=== PATIENT | male | born 1965 | race Caucasian/White ===

== ENCOUNTER 2020-08-23 17:17 | Emergency (ER) | payer BC, SELFPAY ==
[2020-08-23] VITALS (10 sets, daily range): BP systolic 133–157; BP diastolic 78–91; PULSE 72–88; RESP 15–21; TEMP 36.9; O2SAT 92–98
--- NOTE | ~2020-08-23 | XR_ITS ---
EXAMINATION: XR chest 1V portable DATE: 08/23/2020 19:17 INDICATION: Shortness of breath. Tingling in the left arm and forefoot. TECHNIQUE: frontal view of the chest was obtained. COMPARISON: None FINDINGS: The lungs are clear with no focal airspace opacities, pulmonary edema, pleural effusion or pneumothor ax. The cardiomediastinal silhouette is normal. Mild thoracic dextrocurvature with mild to moderate s pondylosis. IMPRESSION: 1. No acute cardiopulmonary disease. Reviewed, dictated and finalized at location H. T SPECIALIST PRODUCT DEMONSTRATOR
--- NOTE | 2020-08-23 17:38 | ECG_ITS ---
Measurements Intervals [place] Rate: 76 P: 65 HI: 121 QRS: 87 QRSD: 107 T: 63 QT: 377 QTc: 424 Interpretive Statements SINUS RHYTHM NORMAL ECG Electronically Signed On 08-23-2020 20:33:57 SR. PAYROLL MANAGER by Maicol Bartlett D.O.
[2020-08-23 17:45] LABS: Basophils Absolute Auto 0.1 K/mm3 (0.0-0.1); Basophils Percent Auto 0.6 % (0.2-1.2); Hematocrit 42.2 % (42.0-52.0); Hemoglobin 14.6 g/dL (14.0-18.0); Immature Granulocyte Absolute 0.05 K/mm3 (0.00-0.031); Immature Granulocyte Percent A 0.4 % (0-0.5); Lymphocytes Percent Auto 17.4 % (18.3-44.2); Mean Corpuscular HGB Conc 34.6 g/dl (32-36); Mean Corpuscular Hemoglobin 31.1 pg (26-34); Mean Corpuscular Volume 89.8 fl (80-100); Mean Platelet Volume 8.9 fl (7.4-10.4); Monocytes Absolute Auto 1.1 K/mm3 (0.1-0.6); Monocytes Percent Auto 8.2 % (2.6-8.5); Neutrophils Absolute Auto 10.1 K/mm3 (1.3-6.7); Neutrophils Percent Auto 73.4 % (45.5-73.1); Platelet Count Result 360 k/mm3 (150-375); Red Cell Distribution Width 11.9 % (11.5-14.5); White Blood Count 13.8 K/mm3 (4.5-10.0)
[2020-08-23 17:56] LABS: Alanine Aminotransferase 25 U/L (4-50); Albumin Level 4.4 g/dL (3.5-5.1); Alkaline Phosphatase 73 U/L (38-126); Anion Gap 7 mmol/L (8-16); Aspartate Amino Transferase 38 U/L (17-59); Bilirubin,Total 0.4 mg/dL (0.2-1.3); Blood Urea Nitrogen 15 mg/dL (9-20); Carbon Dioxide 32 mmol/L (22-30); Chloride 96 mmol/L (98-107); Estimated CRCL calculation 79 ml/min; Estimated Glomerular Filt Rate > 60; Glucose 107 mg/dL (75-110); Potassium 3.9 mmol/L (3.4-5.0); Sodium 135 mmol/L (137-145)
--- NOTE | 2020-08-23 19:29 | PC.NURSE ---
Assumed care of pt. at this time. Report from JHONATHAN Gomes
[2020-08-23] MEDS: ALBUTEROL SULFATE (*SP) AEROSOL 1 PUFF 6 PUFF INHALATION (19:59)
[2020-08-23] MEDS: AZITHROMYCIN 250 MG TABLET 500 MG PO (20:05)
[2020-08-23] MEDS: predniSONE 20 MG TABLET 60 MG PO (20:05)
--- NOTE | 2020-08-23 21:18 | ED.SOB ---
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 No Covid contacts that he knows of He does not have lung disease that he is aware of, however he smokes 1-1/2 to 2 packs a day and has for a long time He also complains of tingling paresthesias in the medial fingers of his left hand with there is no numbness or weakness It sounds like this might be worse with repeated activity but does not completely clear Onset (ago): day(s) Exacerbating factors: exertion Review of Systems Constitutional: Constitutional: Denies chills, Denies fatigue and Denies fever(s) ENT: Denies sore throat Comments: No taste change Cardiovascular: Cardiovascular: Denies chest pain Respiratory: Respiratory: Reports dyspnea and Reports wheezing Gastrointestinal: Gastrointestinal: Denies diarrhea and Denies vomiting Musculoskeletal: Musculoskeletal: Denies myalgias Exam Const: General: no acute distress, well developed and awake Nutritional Appearance: well nourished Orientation/consciousness: patient oriented x3 (alert) Limitations: no limitations HENMT: Head: normocephalic and atraumatic Ears: external ears normal General nose exam: No nasal discharge present and no epistaxis Face and sinus: face symmetric Eyes: Conjunctivae: conjunctivae normal Sclera: sclerae normal EOM: EOMs intact bilaterally Neck: Neck: normal visual inspection, supple and no JVD Chest: Chest palpation & inspection: deferred Resp: Effort & Inspection: normal respiratory effort Auscultation: clear to auscultation bilaterally, no rales, no rhonchi, wheezes (Mainly on the right) and other (BS =) Cardio: Rate: regular rate Rhythm: regular rhythm Heart sounds: no gallops and no murmurs GI: Inspection: normal to inspection GI Palp: Yes Soft to palpation and No Tenderness to palpation present (GI) : General: Yes no CVA tenderness Back/Spine/Pelvis: Back: no CVA tenderness Thoracic/Lumbar Spine: thoracic and lumbar spine normal to inspection Skin: General skin exam: normal color and no rashes or lesions noted Neuro: General: patient oriented x3 (alert), moves all extremities and no focal motor deficits Cranial nerves: Yes facial symmetry Speech: normal speech Extrem: General: normal to inspection, full ROM and no pedal edema Psych: Affect: normal affect Course Course Emergency Course: Improved after albuterol puffs with spacer Tolerated exertion at the bedside fine Vital Signs Vital signs: Vital Signs Temperature 36.9 C 08/23/20 17:23 Pulse Rate 85 08/23/20 17:23 Respiratory Rate 16 08/23/20 17:23 Blood Pressure 145/83 H 08/23/20 17:23 Pulse Oximetry 95 08/23/20 17:23 Temperature 36.9 C 08/23/20 17:23 Pulse Rate 80 08/23/20 20:08 Respiratory Rate 21 H 08/23/20 20:08 Blood Pressure 147/80 H 08/23/20 20:08 Pulse Oximetry 93 08/23/20 20:08 MDM - SOB/Dyspnea Lab Data Result diagrams: 08/23/20 17:32 08/23/20 17:32 Labs: Lab Results 08/23/20 08/23/20 Range/Units 17:32 17:32 WBC 13.8 H (4.5-10.0) K/mm3 RBC 4.70 (4.6-6.20) M/mm3 Hgb 14.6 (14.0-18.0) g/dL Hct 42.2 (42.0-52.0) % MCV 89.8 (80-100) fl MCH 31.1 (26-34) pg MCHC 34.6 (32-36) g/dl RDW 11.9 (11.5-14.5) % Plt Count 360 (150-375) k/mm3 MPV 8.9 (7.4-10.4) fl Immature Gran % (Auto) 0.4 (0-0.5) % Neut % (Auto) 73.4 H (45.5-73.1) % Lymph % (Auto) 17.4 L (18.3-44.2) % [place] % (Auto) 8.2 (2.6-8.5) % Eos % (Auto) 0.0 (0-4.4) % Baso % (Auto) 0.6 (0.2-1.2) % Lymph # (Auto
[2020-08-25 00:04] LABS: SARS-CoV-2 RNA PCR Negative
== END 2020-08-23 22:15 | disposition home or self-care (01) ==
PROVIDERS: Emergency Medicine; Emergency Provider Emergency Medicine
DX: J20.9 Acute bronchitis, unspecified (principal); Z20.828 Contact with and (suspected) exposure to other viral communicable diseases; F17.210 Nicotine dependence, cigarettes, uncomplicated
CPT/HCPCS: 36415; 71045; 80053; 85025; 87635; 93005; 99283; A9270; C9803; J7512; U0003

== ENCOUNTER → 2021-01-01 02:32 | Outpatient (CLI) | payer BC, SELFPAY ==
[2021-01-01 20:22] LABS: SARS-CoV-2 RNA PCR Negative
== END ==
PROVIDERS: PCP Family Medicine; Visit Provider Internal Medicine Gastroenterology
DX: Z01.812 Encounter for preprocedural laboratory examination (principal); Z20.822 Contact with and (suspected) exposure to COVID-19
CPT/HCPCS: C9803; U0003; U0005

== ENCOUNTER 2021-01-04 01:42 | Day surgery (SDC) | payer BC, SELFPAY ==
[2020-12-21 12:37] VITALS: BMI 28.5
[2021-01-04 07:14] VITALS: BP 130/79; PULSE 83; RESP 18; TEMP 36.2; O2SAT 94
[2021-01-04] MEDS: LACTATED RINGERS 1,000 ML 150 ML IV CONT (07:26)
--- NOTE | 2021-01-04 07:52 | PM.HPGS ---
History of Present Illness History of Present Illness Consent: Risks, benefits, and alternatives have been discussed and questions answered. Patient agrees to proceed with procedure. Chief complaint: neoplasm screening Narrative: Efrain Vanessa is a 55 year old male here for colon cancer screening. Review of Systems Review of Systems: All systems reviewed & are unremarkable except as noted in HPI and below PMFSH Past Medical History Medical History Anxiety COPD (chronic obstructive pulmonary disease) Environmental allergies Family History Family History Mother Breast cancer Social History Social History Smoking packs per day: 0.5 Smoking cigarettes per day: 10.0 Years smoked: 40 Smoking pack-years: 20.00 Smoking status: Current every day smoker Tobacco type: cigarettes Second hand tobacco smoke exposure: No Alcohol intake: former Substance use: never Substance use type: marijuana Living arrangements: with family Gender identity (if verbalized by the patient): Male Spiritual care concerns: No Meds Home Medications and Allergies Home Medications Medication Instructions Recorded Confirmed Type albuterol sulfate 90 mcg/actuation 2 puff INHALATION QID PRN #18 g 09/15/20 01/04/21 Rx aerosol inhaler hydroxyzine HCl 25 mg tablet See Rx Instructions .ROUTE 10/12/20 01/04/21 Rx .COMPLEX #60 tablet budesonide-formoterol HFA 160 2 puff INHALATION Q12H #10.2 g 12/13/20 01/04/21 Rx mcg-4.5 mcg/actuation aerosol inhaler sod picosulf 10 mg-magnes 3.5 160 ml PO BID #160 ml 12/16/20 01/04/21 Rx gram-citric 12 gram/160 mL oral solution Allergies Allergy/AdvReac Type Severity Reaction Status Date / Time No Known Allergies Allergy Verified 01/04/21 07:12 Vital Signs Vital Signs - 24 hr 01/04/21 07:14 Temperature 36.2 C L Pulse Rate 83 Respiratory Rate 18 Blood Pressure 130/79 Pulse Oximetry 94 Exam Resp: Auscultation: clear to auscultation bilaterally Cardio: Rate: regular rate Rhythm: regular rhythm GI: GI Palp: Yes Soft to palpation and No Tenderness to palpation present (GI) Assessment and Plan Assessment and plan (1) Colon cancer screening: Code(s): Z12.11 - Encounter for screening for malignant neoplasm of colon Status: Acute Assessment and Plan: Colonoscopy with possible biopsy or polypectomy or cautery or injection of substances.
--- NOTE | 2021-01-04 07:59 | WPDANESEPPF ---
Anes - Initial Pre Proc Eval Procedure: Operation Date: 01/04/21 08:30 Proposed Procedures p Screening Colonoscopy - Tan Saab MD Date/Time: 01/04/21 07:59 Surgeon: Tan Saab MD Pre Op Diagnosis: neoplasm screening Patient Data Age: 55 Gender: M Height: 5 ft 8 in Weight: 81.7 kg Last Vital Signs Temp 36.2 C L 01/04/21 07:14 Pulse 83 01/04/21 07:14 Resp 18 01/04/21 07:14 BP 130/79 01/04/21 07:14 Pulse Ox 94 01/04/21 07:14 Allergies Allergy/AdvReac Type Severity Reaction Status Date / Time No Known Allergies Allergy Verified 01/04/21 07:12 Home Medications Medication Instructions Recorded Confirmed Type albuterol sulfate 90 mcg/actuation 2 puff INHALATION QID PRN #18 g 09/15/20 01/04/21 Rx aerosol inhaler hydroxyzine HCl 25 mg tablet See Rx Instructions .ROUTE 10/12/20 01/04/21 Rx .COMPLEX #60 tablet budesonide-formoterol HFA 160 2 puff INHALATION Q12H #10.2 g 12/13/20 01/04/21 Rx mcg-4.5 mcg/actuation aerosol inhaler sod picosulf 10 mg-magnes 3.5 160 ml PO BID #160 ml 12/16/20 01/04/21 Rx gram-citric 12 gram/160 mL oral solution Patient hx anesthesia problems: none Family hx anesthesia problems: none PMFSH Past Medical History Medical History Anxiety COPD (chronic obstructive pulmonary disease) Environmental allergies Family History Family History Mother Breast cancer Social History Social History Smoking packs per day: 0.5 Smoking cigarettes per day: 10.0 Years smoked: 40 Smoking pack-years: 20.00 Smoking status: Current every day smoker Tobacco type: cigarettes Second hand tobacco smoke exposure: No Alcohol intake: former Substance use: never Substance use type: marijuana Living arrangements: with family Gender identity (if verbalized by the patient): Male Spiritual care concerns: No Anes - Eval Final PreProcedure Day of Procedure 01/04/21 07:59 Patient weight: overweight Heart: regular rate and rhythm Lungs: decreased breath sounds Airway: Mallampati scale class II Neurological: alert and oriented Last oral intake: >/= 8 hours ASA classification: III Emergent: no Anesthetic plan: proceed Anesthesia type and monitoring: general GIVS and standard monitoring Informed Consent: The patient's anesthetic plan and its attendant risks and benefits were discussed with the patient/family/POA. Questions were solicited and answers provided to the satisfaction of the patient/family/POA.
[2021-01-04 08:38] VITALS: BP 119/73; PULSE 74; RESP 18; O2SAT 97
[2021-01-04 08:48] VITALS: BP 124/68; PULSE 72; RESP 20; O2SAT 97
[2021-01-04 08:58] VITALS: BP 112/68; PULSE 70; RESP 20; O2SAT 97
== END 2021-01-04 09:15 | disposition home or self-care (01) ==
PROVIDERS: PCP Family Medicine; Visit Provider Internal Medicine Gastroenterology
PROC: 0DJD8ZZ Inspection of Lower Intestinal Tract, Via Natural or Artificial Opening Endoscopic (ICD-10-PCS; CPT 45378; principal; 2021-01-04 08:30)
DX: Z12.11 Encounter for screening for malignant neoplasm of colon (principal); K63.5 Polyp of colon; K57.30 Diverticulosis of large intestine without perforation or abscess without bleeding; J44.9 Chronic obstructive pulmonary disease, unspecified; F41.9 Anxiety disorder, unspecified; Z79.51 Long term (current) use of inhaled steroids; F17.210 Nicotine dependence, cigarettes, uncomplicated
CPT/HCPCS: 45380; 88305; J2704; J7120

== ENCOUNTER 2021-10-05 14:50 | Outpatient (CLI) | payer BC, SELFPAY ==
--- NOTE | ~2021-10-05 | XR_ITS ---
EXAMINATION: XR chest 2V DATE: 10/05/2021 15:01 INDICATION: Cough. Shortness of breath. TECHNIQUE: Frontal and lateral views of the chest were obtained. COMPARISON: Chest single view 08/23/2020 FINDINGS: The chest demonstrates clear lungs without pneumonia, pleural effusion, or pneumothorax. Th e heart size is normal. IMPRESSION: 1. No acute cardiopulmonary disease. Reviewed, dictated and finalized at location D. SPRAYER
== END 2021-10-05 14:51 | disposition home or self-care (01) ==
LOC: ANHIMG 14:52
PROVIDERS: PCP Family Medicine; Visit Provider Nurse Practitioner
DX: R05.9 Cough, unspecified (principal)
CPT/HCPCS: 71046

== ENCOUNTER 2021-12-02 13:51 | Outpatient (CLI) | payer BC, SELFPAY ==
--- NOTE | 2021-12-05 13:09 | WPDPFTINT ---
PFT Procedure Performed PFT Procedure Performed Spirometry with Pre/Post Bronchodilator Plethysmography (Lung Vol) Diffusing Cap (DLCO) Flow Vol Loop PFT Interpretation Lung volumes were measured with the body plethysmography method. Lung volumes are unremarkable. Spirometry showed diminished expiratory flow rates and a diminished FEV1 to FVC ratio 57%, indicative of obstructive airway disease. Following administration of a bronchodilator there was no significant increase in expiratory flow rates. Lung diffusion capacity is mildly reduced at 76% predicted. The flow volume loop is consistent with obstructive airway disease. Impression: Moderate obstructive airway disease with no response to bronchodilators on this testing. Mild reduction in lung diffusion capacity.
== END 2021-12-02 13:52 | disposition home or self-care (01) ==
LOC: ANHPFT 13:51
PROVIDERS: PCP Family Medicine; Visit Provider Family Medicine
DX: J44.9 Chronic obstructive pulmonary disease, unspecified (principal); R94.2 Abnormal results of pulmonary function studies
CPT/HCPCS: 94060; 94726; 94729

== ENCOUNTER 2021-12-24 13:29 | Inpatient (IN) | payer BC, SELFPAY ==
[2021-12-24] VITALS (20 sets, daily range): BP systolic 129–157; BP diastolic 75–98; PULSE 83–101; RESP 12–24; TEMP 36.2–36.8; O2SAT 88–97; BMI 27.6
--- NOTE | ~2021-12-24 | XR_ITS ---
XR chest 2V DATE: 12/24/2021 15:34 INDICATION: Shortness of breath. History of COPD. TECHNIQUE: AP and lateral views COMPARISON: 10/05/2021 PA and lateral chest FINDINGS: Normal heart size. No hilar or mediastinal enlargement. Moderate bilateral hyperinflation. No pulmonary infiltrate or consolidation, pleural effusion or pulmonary vascular congestion or pneumo thorax. Included skeletal structures are unremarkable. IMPRESSION: Moderate bilateral hyperinflation; no active cardiopulmonary disease Reviewed, dictated and finalized at location A. IMPRESSION: Moderate bilateral hyperinflation; no active cardiopulmonary diseas e
--- NOTE | 2021-12-24 13:38 | ECG_ITS ---
Measurements Intervals [place] Rate: 91 P: 68 UT: 136 QRS: 103 QRSD: 143 T: 39 QT: 387 QTc: 478 Interpretive Statements SINUS RHYTHM RIGHT AXIS DEVIATION [QRS AXIS > 100] INTRAVENTRICULAR CONDUCTION DELAY [130+ ms QRS DURATION] ABNORMAL ECG COMPARED TO ECG 08/23/2020 17:37:37 INTRAVENTRICULAR CONDUCTION DELAY NOW PRESENT Electronically Signed On 12-24-2021 15:24:44 CDT by Del Jordan M.D.
[2021-12-24 14:00] LABS: Alveolar/Arterial O2 Gradient 39.1 mmHg; Carboxyhemoglobin 1.1 % THb (0-2.0); Fractional Inspired Oxygen 21 %; HCO3 ABG 28.2 mEq/l (22.0-26.0); Methemoglobin ABG 0.2 %THb (0-1.5); Oxygen Content ABG 19.9 %vol (16.0-22.0); Oxygen Saturation ABG 90.2 % (95.0-100.0); Oxyhemoglobin 88.1 % THb (90.0-100.0); PCO2 ABG 44.5 mmHg (35.0-45.0); PO2 ABG 57.3 mmHg (80.0-100.0); PO2 FiO2 Ratio Arterial Blood 2.73 %; Reduced Hemoglobin 10.6 %THb (0-5.0); Total Hemoglobin 16.1 g/dL (12.0-18.0); pH ABG 7.419 (7.350-7.450)
[2021-12-24 14:01] LABS: Device ROOM AIR; Modified Allen's Test Pass; Site Drawn LEFT RADIAL
[2021-12-24 14:16] LABS: Basophils Absolute Auto 0.1 K/mm3 (0.0-0.1); Eosinophils Absolute Auto 2.4 K/mm3 (0-0.3); Eosinophils Percent Auto 26.1 % (0-4.4); Hematocrit 46.4 % (42.0-52.0); Hemoglobin 15.5 g/dL (14.0-18.0); Immature Granulocyte Absolute 0.02 K/mm3 (0.00-0.031); Immature Granulocyte Percent A 0.2 % (0-0.5); Lymphocytes Absolute Auto 1.51 K/mm3 (0.9-3.2); Lymphocytes Percent Auto 16.8 % (18.3-44.2); Mean Corpuscular HGB Conc 33.4 g/dl (32-36); Mean Corpuscular Hemoglobin 30.9 pg (26-34); Mean Corpuscular Volume 92.4 fl (80-100); Mean Platelet Volume 8.7 fl (7.4-10.4); Monocytes Percent Auto 10.9 % (2.6-8.5); Platelet Count Result 351 k/mm3 (150-375); Red Blood Count 5.02 M/mm3 (4.6-6.20); Red Cell Distribution Width 12.4 % (11.5-14.5)
[2021-12-24] MEDS: ALBUTEROL SULFATE NEB 2.5 MG/0.5 ML INH 15 MG INHALATION (14:18)
[2021-12-24] MEDS: IPRATROPIUM BR 0.02% INH SOLN 0.5 MG/2.5 ML VIAL 1.5 MG INHALATION (14:19)
[2021-12-24 14:26] LABS: Alanine Aminotransferase 34 U/L (4-50); Albumin Level 4.6 g/dL (3.5-5.1); Alkaline Phosphatase 68 U/L (38-126); Anion Gap 3 mmol/L (8-16); Aspartate Amino Transferase 35 U/L (17-59); Bilirubin,Total 0.6 mg/dL (0.2-1.3); Blood Urea Nitrogen 15 mg/dL (9-20); Carbon Dioxide 31 mmol/L (22-30); Chloride 102 mmol/L (98-107); Estimated CRCL calculation 88 ml/min; Estimated Glomerular Filt Rate > 60; Glucose 110 mg/dL (65-110); Potassium 4.3 mmol/L (3.4-5.0); Sodium 136 mmol/L (137-145)
--- NOTE | 2021-12-24 14:27 | ED.SOB ---
HPI - SOB/Dyspnea General Chief Complaint: Shortness of Breath/Dyspnea Stated Complaint: SOB Time Seen by Provider: 12/24/21 13:48 History of Present Illness HPI Narrative: Patient is a 56-year-old male who presents ER with shortness of breath. Ongoing over the last week. Called into his brass buffer office who prescribed him a Z-Vineet. She has had some cough but no change in his mucus. No fevers or chills or sweats. Denies chest pain or chest pressure. He is not oxygen dependent at home. He does note wheezing. Found to be hypoxic on room air here. Patient has been using his home budesonide and albuterol to help with his dyspnea but felt he needed additional therapy due to his persistent dyspnea. Related Data Home Medications Medication Instructions Recorded Confirmed albuterol sulfate 2 puff INHALATION PRN PRN 12/24/21 12/24/21 [id number] 2 inh INHALATION BID 12/24/21 12/24/21 [Breztri Aerosphere] hydroxyzine HCl 25 mg PO BID 12/24/21 12/24/21 triamcinolone acetonide 1 applic TOPICAL DAILY PRN 12/24/21 12/24/21 Allergies Allergy/AdvReac Type Severity Reaction Status Date / Time No Known Allergies Allergy Verified 12/24/21 20:04 Review of Systems Review of Systems: All systems reviewed & are unremarkable except as noted in HPI and below Constitutional: Constitutional: Denies chills, Denies fever(s) and Denies weakness ENT: Denies nasal congestion and Denies sore throat Cardiovascular: Cardiovascular: Denies chest pain, Denies rapid heart rate and Denies radiating jaw, neck or arm pain Respiratory: Respiratory: Reports cough, Reports dyspnea and Reports wheezing Gastrointestinal: Gastrointestinal: Denies abdominal pain, Denies nausea and Denies vomiting [facility] Past Medical History Medical History Anxiety COPD (chronic obstructive pulmonary disease) Environmental allergies Surgical History Surgical History H/O removal of cyst (~2020) 07/2021 - left supraclavicular area History of melanoma excision 08/2021 - left scapula Family History Family History Mother Breast cancer Social History Social History Smoking packs per day: 2 Smoking cigarettes per day: 40.0 Years smoked: 40 Smoking pack-years: 80.00 Smoking status: Former smoker Tobacco type: cigarettes Second hand tobacco smoke exposure: No Smoking end date: 07/08/21 Alcohol intake: former Substance use: former Substance use type: marijuana Last use: 07/08/2021 Gender identity (if verbalized by the patient): Male Sexual Orientation (if Verbalized by the Patient): Straight or Heterosexual Spiritual care concerns: No Exam Narrative: GENERAL: Uncomfortable-appearing, well-nourished, and in no acute distress. HEAD: Normocephalic, atraumatic. EYES: PERRL and EOMI. ENT: Mucous membranes moist. CHEST: Expiratory wheezing throughout and diminished inferior/posterior lung sounds bilaterally. No rales/rhonchi. No respiratory distress. HEART: Regular rate and rhythm. Normal peripheral pulses. EXTREMITIES: Normal range of motion. No edema. SKIN: Warm, dry, no rash. NEURO: Alert and oriented x3. PSYCH: Normal mood and affect. Course Course Emergency Course: Hypoxic to 86%. Admit to hospital service for scheduled nebs and steroids. Vital Signs Vital signs: Vital Signs Temperature 97.1 F L 12/24/21 13:31 Pulse Rate 94 12/24/21 13:31 Respiratory Rate 24 H 12/24/21 13:31 Blood Pressure 155/91 H 12/24/21 13:31 Pulse Oximetry 89 L 12/24/21 13:31 Temperature 98.2 F 12/24/21 19:45 Pulse Rate 90 12/24/21 19:45 Respiratory Rate 18 12/24/21 19:45 Blood Pressure 134/98 H 12/24/21 19:45 Pulse Oximetry 95 12/24/21 20:14 MDM - SOB/Dyspn
[2021-12-24] MEDS: methylPREDNISolone SOD SUCC 125 MG VIAL IV PUSH (15:04)
--- NOTE | 2021-12-24 19:30 | ADMGEN ---
This patient, Efrain Vanessa, was admitted to [facility] Surg Room 330-01. Patient/family oriented to hospital policies and general routines including ID bracelet, bed and alarms, visiting hours, pain management, procedures, bathroom and other care routines, personal items, smoking policy, room service/diet, and visiting hours. Information on how to activate the Rapid Response Team has been discussed. Patient/Family are encouraged to report perceived risks to care and to ask questions if they do not understand what they are told or what they should do.
--- NOTE | 2021-12-24 19:56 | PM.IMHP ---
H&P: HPI History of Present Illness Date/Time: 12/24/21 19:56 Chief Complaint: Shortness of breath. Narrative: This is a 56-year-old male with past medical history significant for COPD/emphysema, former tobacco tobacco use. Patient presents to the emergency room due to progressively worsening shortness of breath, dry cough, patient new using his albuterol frequently also visited the emergency room 2 days prior to today he was discharged home with Z-Vineet however patient did not get well he is a pulse ox with at home device was showing a pulse ox of 86-89% on room air. Patient denies any copious amount of sputum production or sputum quality changes. Has had night sweats but no fevers no chills no rigors his appetite has been poor, feels fatigued. Patient also is states that he just recently was seen by a head setter on had some change to his medications feels that he has been in a transitioning and medication is not working. Preliminary workup was significant for chest x-ray with hyperinflation no infiltrates were present. Decision has been made to admit the patient for further evaluation management and treatment. Review of Systems Review of Systems: Shortness of breath, dry cough, fatigue, poor appetite. Constitutional: Constitutional: Denies chills, Reports fatigue, Denies fever(s), Denies malaise, Reports night sweats, Reports poor appetite and Denies weakness Eyes: Eyes: Denies change in vision ENT: Denies dysphagia, Denies vertigo, Denies nasal congestion, Denies nasal discharge, Denies nasal obstruction and Denies odynophagia Cardiovascular: Cardiovascular: Denies pedal edema, Denies claudication, Denies leg edema, Denies lightheadedness, Denies radiating jaw, neck or arm pain, Denies palpitations, Denies dyspnea on exertion, Denies orthopnea and Denies paroxysmal nocturnal dyspnea Respiratory: Respiratory: Denies change in phlegm color, Reports cough, Denies excessive phlegm production, Reports dyspnea and Reports wheezing Gastrointestinal: Gastrointestinal: Denies abdominal pain, Denies dyspepsia, Denies heartburn, Denies nausea and Denies vomiting Genitourinary: Genitourinary: Denies dysuria Musculoskeletal: Musculoskeletal: Denies back pain, Denies myalgias, Denies arthralgias and Denies joint swelling Integumentary/Breasts: Skin/Breast: Denies rash Neurologic: Denies vertigo, Denies dizziness, Denies focal weakness and Denies Sensory deficit (Neuro) Psychiatric: Psychiatric: Reports no additional psychiatric complaints and Reports as per HPI Endocrine: Endocrine: Denies cold intolerance, Denies fatigue, Denies flushing, Denies heat intolerance, Denies polyphagia, Denies polydipsia, Denies polyuria and Denies palpitations Hematologic/Lymphatic: Hematologic/Lymphatic: Reports no additional hematologic/lymphatic complaints and Reports as per HPI Allergic/Immunologic: Allergic/Immunologic: Reports no additional allergic/immunologic complaints and Reports as per HPI PMFSH Past Medical History Medical History Anxiety COPD (chronic obstructive pulmonary disease) Environmental allergies Surgical History Surgical History H/O removal of cyst (~2020) 07/2021 - left supraclavicular area History of melanoma excision 08/2021 - left scapula Family History Family History Mother Breast cancer Social History Social History Smoking packs per day: 2 Smoking cigarettes per day: 40.0 Years smoked: 40 Smoking pack-years: 80.00 Smoking status: Former smoker Tobacco type: cigarettes Second hand tobacco smoke exposure: No Smoking end date: 07/08/21 Alcohol intake: former Substance use: former Substance use type: marijuana Last use: 07/08/2021 Gender identity (if verbalized by the p
[2021-12-24] MEDS: methylPREDNISolone SOD SUCC 125 MG VIAL 60 MG IV PUSH (23:12)
[2021-12-25] VITALS (18 sets, daily range): BP systolic 139–144; BP diastolic 67–78; PULSE 67–97; RESP 16–20; TEMP 35.9–36.3; O2SAT 91–96
[2021-12-25] MEDS: ALBUTEROL SULFATE NEB 2.5 MG/0.5 ML INH INHALATION ×6 (00:25→20:12)
[2021-12-25] MEDS: IPRATROPIUM BR 0.02% INH SOLN 0.5 MG/2.5 ML VIAL INHALATION ×6 (00:25→20:12)
[2021-12-25] MEDS: methylPREDNISolone SOD SUCC 125 MG VIAL 60 MG IV PUSH ×2 (11:42→20:19)
--- NOTE | 2021-12-25 12:27 | PM.IMPN ---
Progress Note: A&P Assessment and Plan (1) Acute respiratory failure with hypoxia: Code(s): J96.01 - Acute respiratory failure with hypoxia Status: Resolved Assessment and Plan: Secondary to COPD exacerbation Patient presented with acute SOB and found to be hypoxic down to 86% on admission ABG demonstrated hypoxemia Currently requiring 2L supplemental O2 per nasal cannula. Maintaining adequate O2 sats. Wean O2 as tolerated to goal 90% or above (2) COPD exacerbation: Code(s): J44.1 - Chronic obstructive pulmonary disease with (acute) exacerbation Status: Acute Assessment and Plan: Patient with hx of COPD presents with increased SOB, hypoxia, and wheezing Continue solumedrol. 60 mg q8h Albuterol and ipratropium nebs q6h scheduled Prn albuterol inhaler No indication for antibiotics. No change in sputum quality. Patient recently changed to Breztri inhaler over the past 2 weeks. Reports has not been tolerating well. He is established with Dr. Billingsley. Will plan to contact him tomorrow to consider alternative maintenace inhalers Subjective Date/time seen: 12/25/21 12:27 Interval history: Date of service: 12/25/2021 Efrain Vanessa is a 56 year old male with a history of anxiety, seasonal allergies, and COPD who is seen in follow up for COPD exacerbation. The patient tells me for the past two weeks he has been going downhill and having persistent symptoms of shortness of breath. He stated it got to the point where he could barely walk across the room without feeling very short of breath. He was waking up at night unable to catch his breath. He had been checking his pulse ox at home and found it to be at 89%. He also had been coughing more frequently. Endorsed dry cough without sputum. He believes some of his symptoms may be due to the change in weather as he does suffer from seasonal allergies. He also states he has several animals at home and can occasionally be bothered by dander. Most recently he has been requiring nebs every 4 hours and waking up several times at night requiring his rescue inhaler. He had been taking azithromycin at home for 2 days without any change in symptoms. On my encounter today he is feeling much better. He states his wheezing is 100% improved. He is able to walk around his hospital room without feeling SOB. Denies conversational dyspnea. Still with intermittent nonproductive cough. Denies chest pain, palpitations, nausea, vomiting, fever, chills. Review of Systems Review of Systems: All systems reviewed & are unremarkable except as noted in HPI and below Exam Narrative: General: thin, well-appearing 56-year-old male, sitting up in bed, comfortable, NARD Neuro: awake, alert and oriented x4, speech clear, no focal neuro deficits noted HEENMT: normocephalic, atraumatic, EOMI, sclerae anicteric, moist oral mucosa Respiratory: Diffusely diminished breath sounds, very faint expiratory wheezes, nonlabored breathing Cardio: regular rate, regular rhythm with S1-S2 Abdomen: nondistended, normoactive bowel sounds, soft, nontender to palpation Extremities: no edema, erythema, or tenderness to palpation, DP pulses 2+ bilaterally Skin: no rashes or lesions, warm and dry Psych: appropriate mood and affect, judgment and insight intact Objective Data Vital Signs Vital Signs: Vital Signs - 24 hr 12/24/21 13:31 12/24/21 15:00 12/24/21 15:16 Temperature 97.1 F L Pulse Rate 94 90 93 Respiratory Rate 24 H 19 Blood Pressure 155/91 H 135/96 H 151/91 H Pulse Oximetry 89 L 97 96 12/24/21 16:01 12/24/21 16:30 12/24/21 17:00 Temperature Pulse Rate 91 Respiratory Rate 18 Blood Pressure 143/80 H 145/82 H 129/90 Pulse Oximetry 88 L 91 12/24/21 17:01 12/24/21 17:35 12/24/21 17:45 Temperature Pulse Rate 94 88 92 Respiratory Rate 23 H 16 Blood Pressure Pulse Oximetry 91 92 91 12/24/21 18:00 12/24/21 18:01 12/24/21 18:15 Temperature
[2021-12-25] MEDS: hydrOXYzine HCL 25 MG TABLET PO (21:32)
[2021-12-26] VITALS (16 sets, daily range): BP systolic 125–156; BP diastolic 69–83; PULSE 72–90; RESP 16–20; TEMP 35.9–36.7; O2SAT 92–95
[2021-12-26] MEDS: ALBUTEROL SULFATE NEB 2.5 MG/0.5 ML INH INHALATION ×5 (00:10→20:18)
[2021-12-26] MEDS: IPRATROPIUM BR 0.02% INH SOLN 0.5 MG/2.5 ML VIAL INHALATION ×5 (00:10→20:18)
[2021-12-26] MEDS: methylPREDNISolone SOD SUCC 125 MG VIAL 60 MG IV PUSH (05:33)
[2021-12-26 06:16] LABS: Anion Gap 4 mmol/L (8-16); Blood Urea Nitrogen 28 mg/dL (9-20); Calcium 8.9 mg/dL (8.4-10.2); Carbon Dioxide 29 mmol/L (22-30); Chloride 103 mmol/L (98-107); Estimated CRCL calculation 76 ml/min; Estimated Glomerular Filt Rate > 60; Glucose 155 mg/dL (65-110); Potassium 4.5 mmol/L (3.4-5.0); Sodium 136 mmol/L (137-145)
[2021-12-26] MEDS: LORATADINE 10 MG TABLET PO (08:32)
[2021-12-26] MEDS: hydrOXYzine HCL 25 MG TABLET PO ×2 (08:32→17:15)
--- NOTE | 2021-12-26 11:34 | PCCCNOTE ---
On 12/26/21, the student, [Rebecca Galeana ], provided care and completed [facility] documentation on this patient. I have reviewed the student's documentation and agree with the findings.
--- NOTE | 2021-12-26 12:59 | PM.IMPN ---
Progress Note: A&P Assessment and Plan (1) Acute respiratory failure with hypoxia: Code(s): J96.01 - Acute respiratory failure with hypoxia Status: Resolved Assessment and Plan: Secondary to COPD exacerbation Patient presented with acute SOB and found to be hypoxic down to 86% on admission ABG demonstrated hypoxemia Currently requiring 1L supplemental O2 per nasal cannula. Maintaining adequate O2 sats. Wean O2 as tolerated to goal 90% or above (2) COPD exacerbation: Code(s): J44.1 - Chronic obstructive pulmonary disease with (acute) exacerbation Status: Acute Assessment and Plan: Patient with hx of COPD presents with increased SOB, hypoxia, and wheezing Continue solumedrol, weaned to 40 mg BID Albuterol and ipratropium nebs q6h scheduled Prn albuterol inhaler No indication for antibiotics. No change in sputum quality. Patient recently changed to Breztri inhaler over the past 2 weeks. Reports has not been tolerating well. He is established with Dr. Billingsley. I have contacted his office to discuss considering alternative maintenance inhalers and am awaiting return call Subjective Date/time seen: 12/26/21 12:59 Interval history: Date of service: 12/26/2021 Efrain Vanessa is a 56 year old male with a history of anxiety, seasonal allergies, and COPD who quit smoking in July 2021 who is seen in follow up for COPD exacerbation. He is feeling overall improved, however he notes this morning he had a coughing fit lasting for several minutes and afterwards felt quite short of breath. He noticed that he was wheezing after this episode. He states he has not had a breathing treatment since very early this morning. He has not used his rescue inhaler since he has been here. He slept all through the night and did not have any nighttime symptoms. He notes that he is able to go longer in between his breathing treatments as he was previously taking these every 4 hours around the clock. He is still able to ambulate without dyspnea. His appetite is good. Denies abdominal pain, nausea, vomiting, fever, chills, dizziness, lightheadedness, weakness. Review of Systems Review of Systems: All systems reviewed & are unremarkable except as noted in HPI and below Exam Narrative: General: thin, well-appearing 56-year-old male, sitting up in bed, comfortable, NARD Neuro: awake, alert and oriented x4, speech clear, no focal neuro deficits noted HEENMT: normocephalic, atraumatic, EOMI, sclerae anicteric, moist oral mucosa Respiratory: Bilateral expiratory wheezes, nonlabored breathing, able to speak in complete sentences Cardio: regular rate, regular rhythm with S1-S2 Abdomen: nondistended, normoactive bowel sounds, soft, nontender to palpation Extremities: no edema, erythema, or tenderness to palpation, DP pulses 2+ bilaterally Skin: no rashes or lesions, warm and dry Psych: appropriate mood and affect, judgment and insight intact Objective Data Vital Signs Vital Signs: Vital Signs - 24 hr 12/25/21 14:00 12/25/21 15:40 12/25/21 15:47 Temperature 96.7 F L Pulse Rate 86 67 74 Respiratory Rate 20 18 18 Blood Pressure 143/67 H Pulse Oximetry 94 12/25/21 15:58 12/25/21 20:13 12/25/21 20:15 Temperature Pulse Rate 85 85 Respiratory Rate 18 Blood Pressure Pulse Oximetry 95 92 12/25/21 20:22 12/25/21 21:57 12/26/21 00:11 Temperature 97.4 F L Pulse Rate 81 91 90 Respiratory Rate 18 18 18 Blood Pressure 139/78 Pulse Oximetry 96 12/26/21 00:31 12/26/21 04:27 12/26/21 04:36 Temperature Pulse Rate 78 85 83 Respiratory Rate 18 18 18 Blood Pressure Pulse Oximetry 12/26/21 06:00 12/26/21 08:15 12/26/21 09:00 Temperature 97.5 F L Pulse Rate 81 81 Respiratory Rate 18 18 Blood Pressure 125/69 Pulse Oximetry 92 94 12/26/21 09:04 12/26/21 09:07 Temperature Pulse Rate 83 Respiratory Rate 18 Blood Pressure Pulse Oximetry 93
[2021-12-26] MEDS: methylPREDNISolone SOD SUCC 40 MG VIAL IV PUSH (17:15)
[2021-12-27] VITALS (23 sets, daily range): BP systolic 125–142; BP diastolic 69–73; PULSE 71–89; RESP 16–20; TEMP 36.2–36.6; O2SAT 91–96
[2021-12-27] MEDS: ALBUTEROL SULFATE NEB 2.5 MG/0.5 ML INH INHALATION ×6 (00:10→20:00)
[2021-12-27] MEDS: IPRATROPIUM BR 0.02% INH SOLN 0.5 MG/2.5 ML VIAL INHALATION ×6 (00:10→20:00)
--- NOTE | 2021-12-27 05:20 | PCRCNOTE ---
Pt refused 0400 treatment. RN called RT at 0515 and stated the pt needed a treatment due to shortness of breath and desaturation. RT administered 0400 treatment at 0520.
[2021-12-27] MEDS: methylPREDNISolone SOD SUCC 40 MG VIAL IV PUSH ×2 (05:53→16:59)
--- NOTE | 2021-12-27 06:23 | PC.NURSE ---
Pt called saying he was short of breath. Maintenance Mechanic checked pts O2 saturation and pt was sating at 73%. Maintenance Mechanic put patient on 4L of oxygen and pt ramona to 91% O2 saturation. Maintenance Mechanic called respiratory and asked for a treatment. Patient is currently on 3L sating at 93%. Call light is within reach.
[2021-12-27] MEDS: hydrOXYzine HCL 25 MG TABLET PO ×2 (07:56→16:59)
[2021-12-27] MEDS: LORATADINE 10 MG TABLET PO (07:56)
[2021-12-27 09:38] LABS: Hematocrit 42.8 % (42.0-52.0); Hemoglobin 14.3 g/dL (14.0-18.0); Mean Corpuscular HGB Conc 33.4 g/dl (32-36); Mean Corpuscular Hemoglobin 31.2 pg (26-34); Mean Corpuscular Volume 93.4 fl (80-100); Mean Platelet Volume 8.8 fl (7.4-10.4); Platelet Count Result 336 k/mm3 (150-375); Red Blood Count 4.58 M/mm3 (4.6-6.20); Red Cell Distribution Width 12.6 % (11.5-14.5); White Blood Count 11.7 K/mm3 (4.5-10.0)
[2021-12-27 09:49] LABS: Anion Gap 7 mmol/L (8-16); Blood Urea Nitrogen 26 mg/dL (9-20); Calcium 8.6 mg/dL (8.4-10.2); Carbon Dioxide 30 mmol/L (22-30); Chloride 99 mmol/L (98-107); Estimated CRCL calculation 76 ml/min; Estimated Glomerular Filt Rate > 60; Glucose 227 mg/dL (65-110); Potassium 4.1 mmol/L (3.4-5.0); Sodium 136 mmol/L (137-145)
--- NOTE | 2021-12-27 10:00 | PM.CNPUL ---
Assessment and Plan Assessment and plan (1) COPD exacerbation: Code(s): J44.1 - Chronic obstructive pulmonary disease with (acute) exacerbation Status: Acute Assessment and Plan: 56-year-old man with COPD has been treated for COPD exacerbation. His clinical condition has overall improved although he had 1 episode of bronchospasm earlier today. I would continue with current IV steroid regimen and short-acting bronchodilators as ordered. Added DVT prophylaxis. in view of multiple COPD exacerbations, I would add Daliresp 500 mg p.o. daily to his outpatient maintenance regimen. The patient wants to continue with Symbicort and Spiriva for maintenance bronchodilation. Will follow the patient along with you. (2) Acute respiratory failure with hypoxia: Code(s): J96.01 - Acute respiratory failure with hypoxia Status: Resolved History of Present Illness History of Present Illness Consult date: 12/27/21 Chief complaint: COPD Exacerbation, Hypoxia Narrative: This 56-year-old man presented with progressively increasing shortness of breath. The patient has had history of COPD with multiple exacerbations in the recent past. He was evaluated in the Pulmonary Clinic approximately 3 weeks ago. He was scheduled to have 6 minute walk test. Approximately 1 week prior to this admission, the patient started having shortness of breath and wheezing. He had no fever chills hemoptysis chest pain palpitations. He was using his nebulized short-acting bronchodilator every 4 hours without improvement. He was prescribed Zithromax on the phone for possible respiratory infection. The patient shortness of breath progressively increased and presented to the emergency room where he was diagnosed with COPD exacerbation. He has been treated with IV steroids and short-acting bronchodilators. His clinical condition was significantly improved until this a.m. when he started coughing and having wheezing again. He was placed back on supplemental oxygen and was given nebulized short-acting bronchodilators. Currently he is doing better with no shortness of breath and no cough. Recent pulmonary function testing had shown FEV1 of 2.4 L or 67% predicted and FEV1 to FVC ratio 57%. Lung diffusion capacity was mildly reduced. Low-dose CT done at [facility] in June of 2021 showed 3 lung nodules measuring less than 2 mm as well as diffuse peribronchial interstitial thickening suggesting bronchitis. The distal airways were partially opacified likely mucus plugging versus retained mucus secretions. Chest CT images were not available for review. The patient used to smoke 2 packs per day for approximately 40 years. He quit approximately 6 months ago. 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 up until recently the patient was on Symbicort and Spiriva inhalers and nebulized short-acting bronchodilators. He was switched to Breztri inhaler twice daily approximately 3 weeks ago. The patient stated that the new inhaler did not help him as much as Symbicort and Spiriva inhalers. Review of Systems Review of Systems: All systems reviewed & are unremarkable except as noted in HPI and below PMFSH Past Medical History Medical History Anxiety COPD (chronic obstructive pulmonary disease) Environmental allergies Surgical History Surgical History H/O removal of cyst (~2020) 07/2021 - left supraclavicular area History of melanoma excision 08/2021 - left scapula Family History Family History Mother Breast cancer Social History Social History Smoking packs per day: 2 Smoking cigarettes per day: 40.0 Years smo
[2021-12-27] MEDS: ENOXAPARIN 40 MG/0.4 ML SYRINGE SUB-Q (10:55)
--- NOTE | 2021-12-27 16:18 | PM.IMPN ---
Progress Note: A&P Assessment and Plan (1) Acute respiratory failure with hypoxia: Code(s): J96.01 - Acute respiratory failure with hypoxia Status: Resolved Assessment and Plan: Secondary to COPD exacerbation Patient presented with acute SOB and found to be hypoxic down to 86% on admission ABG demonstrated hypoxemia Has been weaned to room air. This morning required 4 L supplemental O2 but again was able to be quickly weaned to room air and O2 sats are stable at 95% Home O2 eval prior to discharge (2) COPD exacerbation: Code(s): J44.1 - Chronic obstructive pulmonary disease with (acute) exacerbation Status: Acute Assessment and Plan: Patient with hx of COPD presented with increased SOB, hypoxia, and wheezing Continue solumedrol 40 mg BID Albuterol and ipratropium nebs q6h scheduled Prn albuterol inhaler No indication for antibiotics. No change in sputum quality. Patient recently changed to Breztri inhaler over the past 2 weeks. Reports has not been tolerating well and wants to change back to Symbicort and Spiriva Consult to pulmonology today given episode of acute dyspnea and hypoxia this morning. Recommends addition of daily rest 500 mg daily. He is established with Dr. Billingsley Subjective Date/time seen: 12/27/21 16:18 Interval history: Date of service: 12/27/2021 Efrain Vanessa is a 56 year old male with a history of anxiety, seasonal allergies, and COPD who quit smoking in July 2021 who is seen in follow up for COPD exacerbation. He is feeling okay this afternoon. He notes this morning he had a coughing fit in which she had trouble catching his breath. He was found to be hypoxic at 73% and required 4 L of oxygen. His episode made him very nervous. At this time he is feeling improved and he is not having any wheezes. He is not requiring oxygen. He denies shortness of breath or NICOLAS. No more coughing spells. No sputum production. Denies abdominal pain, nausea, vomiting, fever, chills. Appetite is good. He does feel that his face is a bit reddened and he feels this may be from the steroids. His is present with him at the bedside today Review of Systems Review of Systems: All systems reviewed & are unremarkable except as noted in HPI and below Exam Narrative: General: thin, well-appearing 56-year-old male, sitting up in bed, comfortable, NARD Neuro: awake, alert and oriented x4, speech clear, no focal neuro deficits noted HEENMT: normocephalic, atraumatic, EOMI, sclerae anicteric, moist oral mucosa Respiratory: Faint bilateral expiratory wheezes, nonlabored breathing, able to speak in complete sentences Cardio: regular rate, regular rhythm with S1-S2 Abdomen: nondistended, normoactive bowel sounds, soft, nontender to palpation Extremities: no edema, erythema, or tenderness to palpation, DP pulses 2+ bilaterally Skin: no rashes or lesions, warm and dry Psych: appropriate mood and affect, judgment and insight intact Objective Data Vital Signs Vital Signs: Vital Signs - 24 hr 12/26/21 20:20 12/26/21 20:21 12/26/21 20:30 Temperature Pulse Rate 84 86 Respiratory Rate 16 16 Blood Pressure Pulse Oximetry 95 12/26/21 22:00 12/27/21 00:10 12/27/21 00:23 Temperature 98.0 F Pulse Rate 72 72 74 Respiratory Rate 16 16 16 Blood Pressure 141/72 H Pulse Oximetry 94 12/27/21 05:24 12/27/21 05:25 12/27/21 05:34 Temperature Pulse Rate 88 82 Respiratory Rate 20 18 Blood Pressure Pulse Oximetry 91 12/27/21 05:57 12/27/21 06:12 12/27/21 06:27 Temperature 97.2 F L Pulse Rate 71 Respiratory Rate 16 Blood Pressure 125/70 Pulse Oximetry 96 95 93 12/27/21 07:41 12/27/21 07:45 12/27/21 07:49 Temperature Pulse Rate 78 79 Respiratory Rate 18 18 Blood Pressure Pulse Oximetry 96 12/27/21 08:20 12/27/21 12:02 12/27/21 12:05 Temperature Pulse Rate 77 Respiratory Rate 18 Blood Pressure
[2021-12-28] VITALS (9 sets, daily range): BP systolic 135; BP diastolic 78; PULSE 70–84; RESP 18; TEMP 36.4; O2SAT 93–94
[2021-12-28] MEDS: ALBUTEROL SULFATE NEB 2.5 MG/0.5 ML INH INHALATION ×4 (00:15→12:57)
[2021-12-28] MEDS: IPRATROPIUM BR 0.02% INH SOLN 0.5 MG/2.5 ML VIAL INHALATION ×4 (00:15→12:58)
[2021-12-28] MEDS: methylPREDNISolone SOD SUCC 40 MG VIAL IV PUSH (05:56)
[2021-12-28] MEDS: LORATADINE 10 MG TABLET PO (09:21)
[2021-12-28] MEDS: ENOXAPARIN 40 MG/0.4 ML SYRINGE SUB-Q (09:22)
[2021-12-28] MEDS: hydrOXYzine HCL 25 MG TABLET PO (09:22)
--- NOTE | 2021-12-28 10:35 | PM.DS ---
DS: Admitting Diagnosis Discharge Date 12/28/21 Admitting Diagnosis copd exacerbation DS: Discharge Diagnosis Discharge Diagnosis (1) Acute respiratory failure with hypoxia: Code(s): J96.01 - Acute respiratory failure with hypoxia Status: Resolved Assessment and Plan: Secondary to COPD exacerbation Patient presented with acute SOB and found to be hypoxic down to 86% on admission ABG demonstrated hypoxemia Has been weaned to room air. Per pulm he is stable for discharge at this time. (2) COPD exacerbation: Code(s): J44.1 - Chronic obstructive pulmonary disease with (acute) exacerbation Status: Acute Assessment and Plan: Patient with hx of COPD presented with increased SOB, hypoxia, and wheezing Continued solumedrol 40 mg BID, brady switch to prednisone taper per pulm on discharge Albuterol and ipratropium nebs q6h scheduled Prn albuterol inhaler No indication for antibiotics. No change in sputum quality. Patient recently changed to Breztri inhaler over the past 2 weeks. Reports has not been tolerating well and wants to change back to Symbicort and Spiriva Consult to pulmonology. He is established with Dr. Billingsley who recommends addition of daliresp 500 mg daily. Pt is feeling well at this time, ambulating around his room on room air without any sob. Dr. Billingsley states stable for discharge at this time. DS: Summary Hospital Course Reason for hospitalization: Efrain Vanessa is a 56 year old male with a history of anxiety, seasonal allergies, and COPD who quit smoking in July 2021 admitted for COPD exacerbation. Please see HPI for further details. Hospital Course: Please see above for details of hospital course. Status at Discharge Cognitive/behavioral status at discharge: stable Functional status at discharge: independent ambulation Overall status at discharge: patient is progressing back to baseline Time Spent with Patient Time attestation: Total time spent providing and/or coordinating discharge services: 32 Time spent: Greater than 30 minutes Exam Narrative: General: thin, well-appearing 56-year-old male, ambulating around his room, NARD Neuro: awake, alert and oriented x4, speech clear, no focal neuro deficits noted HEENMT: normocephalic, atraumatic, sclerae anicteric, moist oral mucosa Respiratory: Lungs CTA bilaterally, no wheezing, non labored breathing Cardio: regular rate, regular rhythm with S1-S2 Abdomen: nondistended, normoactive bowel sounds, soft, nontender to palpation Extremities: no edema, erythema, or tenderness to palpation, DP pulses 2+ bilaterally Skin: no rashes or lesions, warm and dry Psych: appropriate mood and affect, judgment and insight intact Discharge Plan Discharge Attending physician on discharge: Elizabet Gan Consulting providers: Russel Billingsley Discharging Clinician: Lauren Knight Anticipated Discharge Date/Time: 12/28/21 10:44 Patient Disposition: Home, Self-Care Activity: may shower Diet: regular Discharge Instructions: Please continue taking all medications as directed. Follow up in 1 month with pulmonology as discussed. You may also follow up in the clinic sooner if you have any issues. Return to hospital for any new or worsening symptoms. Patient Instructions: Antibiotic Form, Pain Management (DC), Hypoxia (GEN) Stand Alone Forms: General Discharge Information Follow-up/Referrals: Russel Billingsley MD [Physician] - 5 Weeks Discharge Medications: New ipratropium bromide 0.02 % Solution 0.5 mg inhalation Q6HRT 30 Days Qty: 300 RF: 0 Daliresp 500 mcg tablet 500 mcg PO DAILY Qty: 30 RF: 0 prednisone 5 mg tablet See Rx Instructions .ROUTE .COMPLEX Qty: 116 RF: 0 Continued albuterol sulfate 90 mcg/actuation HFA aerosol inhaler 2 puff INHALATION PRN PRN (Reason: Wheezing) RF: 0 triamcinolone acetonide 0.5 % cream 1 applic topic
--- NOTE | 2021-12-28 10:46 | PM.PNPUL ---
Progress Note: A&P Additional Plan (1) COPD exacerbation: Code(s): J44.1 - Chronic obstructive pulmonary disease with (acute) exacerbation Status: Acute Assessment and Plan: 56-year-old man with COPD has been treated for COPD exacerbation. His clinical condition has overall improved . patient can be discharged home on prednisone tapering regimen for approximately 2-3 weeks. patient wants to resume his previous maintenance bronchodilators Symbicort 160/4.5 inhaler and Spiriva inhaler. I would add Daliresp 500 mg p.o. daily for recurrent COPD exacerbation. He will continue with the rescue albuterol medications. I would like to re-evaluate the patient in the pulmonary clinic in approximately 5-6 weeks from today or sooner if needed. Case was discussed with the hospitalist. (2) Acute respiratory failure with hypoxia: Code(s): J96.01 - Acute respiratory failure with hypoxia Status: Resolved Subjective Date/time seen: 12/28/21 10:46 Patient doing much better today. He has no cough or wheezing. Sitting in chair while breathing room air. Eager to go home. Review of Systems Review of Systems: All systems reviewed & are unremarkable except as noted in HPI and below Exam Narrative: GENERAL APPEARANCE: Well developed, well nourished, alert and cooperative, and appears to be in no acute distress While on Room air SKIN: Inspection of the skin reveals no rashes, ulcerations or petechiae. HEENT: Sclerae anicteric and conjunctivae pink and moist. Extraocular movements were intact and pupils were equal, round, and reactive to light. The oral mucosa, hard and soft palate, tongue and posterior pharynx were normal. NECK: Supple. There was no thyroid enlargement, and no tenderness, or masses were felt. LUNGS: Auscultation of the lungs revealed distant breath sounds with minimal expiratory wheezing CARDIAC: There was a regular rate and rhythm without any murmurs. ABDOMEN: Soft and nontender with normal bowel sounds. There was no organomegaly. LYMPH NODES: No lymphadenopathy was appreciated in the neck. EXTREMITIES: No cyanosis, clubbing or edema. NEUROLOGIC: Alert and oriented x 3. Normal affect. Objective Data Vital Signs Vital Signs: Vital Signs - 24 hr 12/27/21 12:02 12/27/21 12:05 12/27/21 12:12 Temperature Pulse Rate 77 80 Respiratory Rate 18 18 Blood Pressure Pulse Oximetry 95 95 12/27/21 13:48 12/27/21 16:36 12/27/21 16:40 Temperature 36.6 C Pulse Rate 78 78 Respiratory Rate 18 18 Blood Pressure 133/69 Pulse Oximetry 95 96 12/27/21 16:45 12/27/21 20:01 12/27/21 20:02 Temperature Pulse Rate 75 85 Respiratory Rate 18 18 Blood Pressure Pulse Oximetry 96 12/27/21 20:12 12/27/21 22:00 12/28/21 00:15 Temperature 36.6 C Pulse Rate 89 82 82 Respiratory Rate 18 18 Blood Pressure 142/73 H Pulse Oximetry 92 12/28/21 00:24 12/28/21 04:21 12/28/21 05:49 Temperature 36.4 C Pulse Rate 84 77 78 Respiratory Rate 18 18 18 Blood Pressure 135/78 Pulse Oximetry 93 12/28/21 08:07 12/28/21 08:09 12/28/21 08:15 Temperature Pulse Rate 74 76 Respiratory Rate 18 18 Blood Pressure Pulse Oximetry 94 Intake/Output Intake/Output: Intake & Output 12/25/21 12/26/21 12/27/21 12/28/21 23:59 23:59 23:59 23:59 Intake Total 1008 1138 3722 704 Output Total 2100 650 1250 900 Balance [id number] -[facility] Meds/Results Medications: Active Medications Generic Name Dose Route Start Last Admin Trade Name Freq PRN Reason Stop Dose Admin Acetaminophen 650 mg 12/24/21 17:35 Acetaminophen 325 Mg Tablet PO Q4H PRN Mild Pain (1-3) or Fever Albuterol 2 puff 12/24/21 20:01 Albuterol Sulfate (*Sp) Aerosol 1 Puff INHALATION Q6HRT PRN Shortness Of Breath Albuterol 2.5 mg 12/28/21 14:00 Albuterol Sulfate Neb 2.5 Mg/0.5 Ml Inh INHALATION Q6HRT [facility] Enoxaparin Sodium 40 mg 12/27/21 10:00
== END 2021-12-28 15:00 | disposition home or self-care (01) | DRG 133 ==
LOC: ANHED 14:16 → ANH3MEDSUR 18:37
PROVIDERS: Physician Assistant; Admitting Provider Student in an Organized Health Care Education/Training Program; Emergency Provider Emergency Medicine; PCP Family Medicine; Visit Provider Physician Assistant
DX: J96.01 Acute respiratory failure with hypoxia (principal); J43.9 Emphysema, unspecified; F41.9 Anxiety disorder, unspecified; Z87.891 Personal history of nicotine dependence; Z79.2 Long term (current) use of antibiotics; Z79.51 Long term (current) use of inhaled steroids; Z79.899 Other long term (current) drug therapy
CPT/HCPCS: 36415; 36600; 71046; 80048; 80053; 82375; 82805; 83050; 85025; 85027; 93005; 94640; 96374; 96376; 99285; A9270; G0378; J1650; J2920; J2930

== ENCOUNTER 2022-02-15 11:18 | Observation (INO) | payer BC, SELFPAY ==
[2022-02-15] VITALS (8 sets, daily range): BP systolic 145–158; BP diastolic 77–97; PULSE 76–94; RESP 16–22; TEMP 36.4–37; O2SAT 92–94
--- NOTE | ~2022-02-15 | XR_ITS ---
EXAMINATION: XR chest 2V DATE: 02/15/2022 13:28 INDICATION: Sinus congestion TECHNIQUE: PA and lateral views of the chest are obtained. COMPARISON: 12/24/2021 FINDINGS: The lungs are free of acute opacities. There is no pleural effusion or pneumothorax. The ca rdiomediastinal silhouette is normal. There is moderate thoracic spondylosis. IMPRESSION: 1. No acute cardiopulmonary abnormality. Reviewed, dictated and finalized at location A.
--- NOTE | ~2022-02-15 | CT_ITS ---
EXAMINATION: CTA chest PE protocol DATE: 02/15/2022 15:03 INDICATION: Shortness of breath, tachypnea. Recent high risk hospitalization. TECHNIQUE: Computed tomography angiography (CTA) of the chest was performed with 100 CC Omnipaque 300 intravenous contrast timed to evaluate the pulmonary arteries. Coronal maximum intensity projection 3D-reconstructions were created by the technologist. Automated exposure control and iterative reconst ruction technique were employed. Exam dose: 593.06 mGy-cm total exam DLP. COMPARISON: 02/15/2022 PA and lateral chest FINDINGS: There is diagnostic contrast enhancement of the pulmonary arteries and no evidence of pulmo nary embolism. No thoracic aortic aneurysm or dissection. There is thoracic aortic and great vessel and coronary art nancy calcification. Heart size is normal. No pericardial or pleural effusion. There is mild discoid scarring in the medial segment of the middle lobe. No pulmonary infiltrate or c onsolidation or pulmonary mass lesion is noted. Normal morphology of the adrenal glands. Pinpoint left renal nonobstructing calculus. No suspicious osteolytic or osteoblastic lesions. IMPRESSION: No evidence of pulmonary embolism Reviewed, dictated and finalized at Location [facility]. Reviewed, dictated and finalized at location B.
--- NOTE | 2022-02-15 12:03 | ED.URI ---
HPI - URI/Sore Throat General Chief Complaint: Upper Respiratory Infection Stated Complaint: LOW O2 Time Seen by Provider: 02/15/22 12:03 Source: patient and family Mode of arrival: ambulatory Limitations: no limitations History of Present Illness HPI Narrative: Patient is a 56-year-old male with a history of COPD presenting to the emergency department for evaluation of shortness of breath, low oxygen levels. Patient states he has been feeling unwell since Sunday, noticed home O2 levels were anywhere from 83 to 87% on room air when he checked. 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 Patient reports rhinorrhea, congestion, chronic cough. Denies increase in sputum production, hemoptysis. He denies any chest pain, no pleuritic chest pain. He denies leg swelling or calf pain. Patient denies fever, chills. Reports that when he is at rest symptoms seem to improve. He has been using his inhalers as prescribed, is not currently on any steroid therapy or antibiotics. Patient states he called his chromium plater and was referred to the emergency department. Patient states that he did a DuoNeb treatment just prior to arrival. Related Data Home Medications Medication Instructions Recorded Confirmed albuterol sulfate 2 puff INHALATION PRN PRN 12/24/21 02/08/22 hydroxyzine HCl 25 mg PO BID 12/24/21 02/08/22 tiotropium bromide 18 mcg capsule 1 cap INHALATION DAILY 02/08/22 02/08/22 with inhalation device Allergies Allergy/AdvReac Type Severity Reaction Status Date / Time No Known Allergies Allergy Verified 02/15/22 11:34 Review of Systems Review of Systems: CONSTITUTIONAL: Denies fever, chills, or sweats. EYES: Denies visual changes, redness, or discharge. ENT: Reports rhinorrhea, congestion, denies sore throat CARDIOVASCULAR: Denies chest pain, palpitations, or edema. RESPIRATORY: Reports cough and shortness of breath GASTROINTESTINAL: Denies abdominal pain, nausea, vomiting, or diarrhea. GENITOURINARY: Denies dysuria or hematuria. SKIN: Denies rash or itching. MUSCULOSKELETAL: Denies back pain, joint pain, or myalgia. NEUROLOGIC: Denies headache, numbness, or weakness. [facility] Past Medical History Medical History Anxiety COPD (chronic obstructive pulmonary disease) Environmental allergies Surgical History Surgical History H/O removal of cyst (~2020) 07/2021 - left supraclavicular area History of melanoma excision 08/2021 - left scapula Family History Family History Mother Breast cancer Social History Social History Smoking packs per day: 2 Smoking cigarettes per day: 40.0 Years smoked: 40 Smoking pack-years: 80.00 Tobacco type: cigarettes Second hand tobacco smoke exposure: No Smoking end date: 07/08/21 Alcohol intake: former Substance use: former Substance use type: marijuana Last use: 07/08/2021 Gender identity (if verbalized by the patient): Male Sexual Orientation (if Verbalized by the Patient): Straight or Heterosexual Spiritual care concerns: No Exam Narrative: GENERAL: Awake, alert, conversant HEAD: Normocephalic, atraumatic. EYES: PERRLA and EOMI. ENT: Nares clear, no rhinorrhea or epistaxis. Mucous membranes moist. NECK: Supple. CHEST: No respiratory distress, breathing even and non labored, upper airway rhonchi without wheezing, there is diminished aeration at the bases, no tachypnea, no respiratory distress HEART: Regular rate, sinus rhythm ABDOMEN:Non distended, non tender EXTREMITIES: Normal range of motion. No edema. SKIN: Warm, dry, no rash. NEURO:No focal deficits. Alert and oriented x3 Course Vital Signs Vital signs: Vital Signs Temperature 36.4 C L 02/15/22 11:21 Pulse R
--- NOTE | 2022-02-15 12:52 | ECG_ITS ---
Measurements Intervals [place] Rate: 79 P: 85 AR: 135 QRS: 94 QRSD: 157 T: 46 QT: 404 QTc: 464 Interpretive Statements SINUS RHYTHM RIGHT AXIS DEVIATION POSSIBLE RIGHT ATRIAL ENLARGEMENT LEFT ATRIAL ENLARGEMENT RIGHT BUNDLE BRANCH BLOCK MINIMAL Q WAVES- INFERIOR LEADS BASELINE ARTIFACT- I, III, AVL, AVF ABNORMAL ECG Electronically Signed On 02-15-2022 13:42:15 CDT by Maicol Bartlett D.O.
[2022-02-15] MEDS: ALBUTEROL SULFATE NEB 2.5 MG/3 ML INH 5 MG INHALATION ×2 (12:59→20:40)
[2022-02-15] MEDS: IPRATROPIUM BR 0.02% INH SOLN 0.5 MG/2.5 ML VIAL INHALATION ×2 (13:00→20:40)
[2022-02-15 13:25] LABS: Basophils Absolute Auto 0.1 K/mm3 (0.0-0.1); Basophils Percent Auto 1.2 % (0.2-1.2); Hematocrit 42.5 % (42.0-52.0); Hemoglobin 14.7 g/dL (14.0-18.0); Immature Granulocyte Absolute 0.06 K/mm3 (0.00-0.031); Immature Granulocyte Percent A 0.6 % (0-0.5); Lymphocytes Percent Auto 17.6 % (18.3-44.2); Mean Corpuscular HGB Conc 34.6 g/dl (32-36); Mean Corpuscular Hemoglobin 30.7 pg (26-34); Mean Corpuscular Volume 88.7 fl (80-100); Mean Platelet Volume 8.5 fl (7.4-10.4); Monocytes Percent Auto 9.6 % (2.6-8.5); Neutrophils Absolute Auto 7.3 K/mm3 (1.3-6.7); Platelet Count Result 464 k/mm3 (150-375); Red Blood Count 4.79 M/mm3 (4.6-6.20); Red Cell Distribution Width 12.8 % (11.5-14.5); White Blood Count 10.3 K/mm3 (4.5-10.0)
[2022-02-15] MEDS: methylPREDNISolone SOD SUCC 125 MG VIAL IV PUSH (13:29)
[2022-02-15 13:35] LABS: Anion Gap 8 mmol/L (8-16); Blood Urea Nitrogen 14 mg/dL (9-20); Calcium 9.2 mg/dL (8.4-10.2); Carbon Dioxide 26 mmol/L (22-30); Chloride 103 mmol/L (98-107); Estimated CRCL calculation 71 ml/min; Estimated Glomerular Filt Rate > 60; Glucose 111 mg/dL (65-110); Sodium 137 mmol/L (137-145)
--- NOTE | 2022-02-15 14:30 | PC.NURSE ---
pt ambulated with pulse ox. pt dropped to 86%. tachypneic. did complain of sob upon arriving to room.
[2022-02-15 15:55] LABS: SARS-CoV-2 RNA PCR Negative
--- NOTE | 2022-02-15 16:55 | PM.IMHP ---
H&P: HPI History of Present Illness Date/Time: Patient was placed observation status for expected length of stay less than 23 hours for management, will plan to re-evaluate tomorrow for improvement. 02/15/22 16:55 Chief Complaint: Shortness of breath Narrative: Mr. Vanessa is a 56-year-old male who presented emergency room with complaints of shortness of breath. Patient states he was hospitalized in January with a COPD exacerbation and was feeling very well up until Sunday of this last week. 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 Patient denies any fever or chills. Patient denies any cough. Patient states he has noticed some dyspnea on exertion and has been taking his nebulizer more often than normal. Patient denies any chest pain, lightheadedness, dizziness, syncopal, or near syncopal episodes. Patient denies any palpitations. Upon evaluation in emergency room patient was given Solu-Medrol, azithromycin, and nebulizer treatment. On room air patient's saturations were in the 90s, but unfortunately when he would stand up and attempt to walk his saturations would drop to the 80s. Patient has a known history of COPD, environmental allergies, and anxiety. Patient states he takes hydroxyzine for his anxiety and this works very well. Patient states he has been taking all of his home inhalers without any difficulty, but they have not been helping with this shortness of breath. Review of Systems Review of Systems: A 12 point review of systems was completed patient all pertinent positive and negative per HPI the remainder are unremarkable. [facility] Past Medical History Medical History Anxiety COPD (chronic obstructive pulmonary disease) Environmental allergies Surgical History Surgical History H/O removal of cyst (~2020) 07/2021 - left supraclavicular area History of melanoma excision 08/2021 - left scapula Family History Family History Mother Breast cancer Social History Social History Smoking packs per day: 2 Smoking cigarettes per day: 40.0 Years smoked: 40 Smoking pack-years: 80.00 Tobacco type: cigarettes Second hand tobacco smoke exposure: No Smoking end date: 07/08/21 Alcohol intake: former Substance use: former Substance use type: marijuana Last use: 07/08/2021 Gender identity (if verbalized by the patient): Male Sexual Orientation (if Verbalized by the Patient): Straight or Heterosexual Spiritual care concerns: No Meds Home Medications and Allergies Home Medications Medication Instructions Recorded Confirmed Type loratadine 10 mg tablet 10 mg PO DAILY #90 tablet 10/12/21 02/08/22 Rx albuterol sulfate 2 puff INHALATION PRN PRN 12/24/21 02/08/22 History hydroxyzine HCl 25 mg PO BID 12/24/21 02/08/22 History budesonide-formoterol HFA 160 2 puff INHALATION Q12H #1 ea 12/30/21 02/08/22 Rx mcg-4.5 mcg/actuation aerosol inhaler albuterol sulfate 2.5 mg INHALATION Q4-6H PRN #180 ml 01/09/22 02/08/22 Rx Daliresp 500 mcg tablet 500 mcg PO DAILY #30 tablet NS 01/11/22 02/08/22 Rx ipratropium bromide 0.02 % 0.5 mg INHALATION Q6HRT 30 Days 02/08/22 02/08/22 Rx solution for inhalation #300 ml tiotropium bromide 18 mcg capsule 1 cap INHALATION DAILY 02/08/22 02/08/22 History with inhalation device albuterol sulfate [Ventolin HFA] 1 inhalation INHALATION QID 10 02/15/22 Rx Days #6.7 gm azithromycin See Rx Instructions .ROUTE 02/15/22 Rx .COMPLEX #5 tablet prednisone 60 mg PO DAILY 5 Days #15 tablet 02/05
[2022-02-15] MEDS: methylPREDNISolone SOD SUCC 125 MG VIAL 60 MG IV PUSH (20:54)
[2022-02-16] VITALS (11 sets, daily range): BP systolic 138–146; BP diastolic 71–76; PULSE 76–108; RESP 18; TEMP 36.6–37; O2SAT 92–96
[2022-02-16] MEDS: methylPREDNISolone SOD SUCC 125 MG VIAL 60 MG IV PUSH ×2 (00:35→06:27)
[2022-02-16] MEDS: IPRATROPIUM BR 0.02% INH SOLN 0.5 MG/2.5 ML VIAL INHALATION ×2 (02:43→09:28)
[2022-02-16] MEDS: ALBUTEROL SULFATE NEB 2.5 MG/3 ML INH 5 MG INHALATION ×2 (02:43→09:28)
[2022-02-16 06:24] LABS: Basophils Percent Auto 0.2 % (0.2-1.2); Hematocrit 42.6 % (42.0-52.0); Hemoglobin 14.1 g/dL (14.0-18.0); Immature Granulocyte Absolute 0.07 K/mm3 (0.00-0.031); Immature Granulocyte Percent A 0.7 % (0-0.5); Lymphocytes Absolute Auto 0.84 K/mm3 (0.9-3.2); Lymphocytes Percent Auto 7.9 % (18.3-44.2); Mean Corpuscular HGB Conc 33.1 g/dl (32-36); Mean Corpuscular Hemoglobin 30.4 pg (26-34); Mean Corpuscular Volume 91.8 fl (80-100); Mean Platelet Volume 8.7 fl (7.4-10.4); Monocytes Absolute Auto 0.1 K/mm3 (0.1-0.6); Monocytes Percent Auto 1.2 % (2.6-8.5); Neutrophils Absolute Auto 9.5 K/mm3 (1.3-6.7); Platelet Count Result 452 k/mm3 (150-375); Red Blood Count 4.64 M/mm3 (4.6-6.20); Red Cell Distribution Width 13.1 % (11.5-14.5); White Blood Count 10.6 K/mm3 (4.5-10.0)
[2022-02-16 06:34] LABS: Anion Gap 7 mmol/L (8-16); Blood Urea Nitrogen 19 mg/dL (9-20); Carbon Dioxide 27 mmol/L (22-30); Chloride 103 mmol/L (98-107); Estimated CRCL calculation 79 ml/min; Estimated Glomerular Filt Rate > 60; Glucose 162 mg/dL (65-110); Magnesium 1.9 mg/dL (1.6-2.3); Potassium 4.3 mmol/L (3.4-5.0); Sodium 137 mmol/L (137-145)
[2022-02-16] MEDS: UMECLIDINIUM BROMIDE 62.5 MCG ELLIPTA 1 PUFF INHALATION (09:27)
[2022-02-16] MEDS: FLUTICASONE/SALMETEROL 115-21 MCG INHALER 1 PUFF 2 PUFF INHALATION (09:27)
[2022-02-16] MEDS: ENOXAPARIN 40 MG/0.4 ML SYRINGE SUB-Q (09:33)
[2022-02-16] MEDS: hydrOXYzine HCL 25 MG TABLET PO (09:34)
[2022-02-16] MEDS: ROFLUMILAST 500 MCG TABLET PO (09:34)
[2022-02-16] MEDS: LORATADINE 10 MG TABLET PO (09:34)
--- NOTE | 2022-02-16 10:00 | PM.DS ---
DS: Admitting Diagnosis Discharge Date 02/16/22 1000 Admitting Diagnosis Brochiospasms DS: Discharge Diagnosis Discharge Diagnosis (1) Hypoxia: Code(s): R09.02 - Hypoxemia Status: Acute Assessment and Plan: noted to be hypoxic with ambulation. Looks ot be bronchiospasms IV Solu-Medrol IV azithromycin/ceftriaxone. Home O2 eval Will DC on steroids (2) COPD exacerbation: Code(s): J44.1 - Chronic obstructive pulmonary disease with (acute) exacerbation Status: Acute Assessment and Plan: Chest x-ray shows no acute abnormality CTA shows no PE or any pneumonia, infiltrate or consolidation Patient started on IV azithromycin and ceftriaxone Steroids initiated, titrated down Will place patient on IV azithromycin as well as IV Solu-Medrol. Will also place patient on routine nebulizer treatments and recent do patient's home chronic COPD medications once we do have a verified medication list. (3) Hypertension: Code(s): I10 - Essential (primary) hypertension Status: Acute Assessment and Plan: Current blood pressure 146/71 No current blood pressure medication at home Probably related to hospital course and illness Continue trend blood pressure Consider therapy when indicated (4) Bronchospasm: Code(s): J98.01 - Acute bronchospasm Status: Acute Assessment and Plan: No wheezes, sputum productions SOB especially with activity Supplemental O2 Weaned off Oxygen DS: Summary Hospital Course Hospital Course: Patient is a 56-year-old male with a past medical history of COPD, anxiety, seasonal allergies who presented to the ED with shortness of breath and congestion. Patient stated that he had just gotten off a long course of steroids. He started diuresed and he said he was doing okay until the last couple days when he started to have increased shortness of breath. He stated that when he was walking his saturation was going to the 80s however at rest he was maintaining in the 90s. Patient was started on IV antibiotics and steroids upon arrival. Pulmonology was consulted and determined that the patient has seasonal allergies with bronchial spasms. It was determined that the patient could be discharged safely at this time. Labs and vital signs are stable. Patient is comfortable going home. And will need to make a follow-up appointment with the Pulmonary Clinic in 3 weeks. Status at Discharge Functional status at discharge: independent ambulation Overall status at discharge: patient is progressing back to baseline Time Spent with Patient Time attestation: Total time spent providing and/or coordinating discharge services: 39 minutes Time spent: Greater than 30 minutes Specific discharge activities: Diagnostic testing, chart review, developing a treatment plan, education, care coordination documentation, physical exam, result review Exam Const: General: cooperative, healthy appearing, no acute distress, well developed, alert and awake Nutritional Appearance: well nourished Orientation/consciousness: patient oriented x3 Limitations: no limitations HENMT: Head: normal to inspection Ears: hearing grossly normal bilaterally General nose exam: Normal external nose present Mouth: Yes Normal oral and palatal mucosa present, Yes lip normal and Yes tongue normal Teeth and gingiva: abnormal tooth and associated gingiva and poor dentition Eyes: General: appearance normal, both eyes and all related structures Neck: Neck: normal visual inspection, full ROM, trachea midline and supple Chest: Chest palpation & inspection: normal inspection of the chest Resp: Effort & Inspection: normal respiratory effort and able to speak in complete sentences Auscultation: diminished lung sounds Cardio: Jugular venous distension: no JVD Rate: regular rate Rhythm: regular rhythm Heart sounds: S1 normal heart sound present and S2 normal heart soun
--- NOTE | 2022-02-16 12:06 | PM.CNPUL ---
Assessment and Plan Assessment and plan (1) COPD exacerbation: Code(s): J44.1 - Chronic obstructive pulmonary disease with (acute) exacerbation Status: Acute (2) Asthma-COPD overlap syndrome: Code(s): J44.9 - Chronic obstructive pulmonary disease, unspecified Status: Acute Assessment and Plan: 56-year-old man with a history of asthma COPD overlap syndrome previous hospitalizations for COPD exacerbation presented with 2 day history of shortness of breath, oxyhemoglobin desaturation with ambulation, currently significantly improved following overnight treatment with IV steroids and short-acting bronchodilators. Chest imaging studies showed no evidence of pulmonary embolism and no new lung infiltrates. On admission CBC he had no elevated eosinophils. During hospitalization in December, the eosinophil count was elevated. The patient has had history of nasal congestion for which he uses [id number] nasal sprays. Plan is as follows. Patient's is back at baseline as far as respiratory status. I would discharge patient home on the following regimen. Prednisone 40 mg p.o. daily for 5 days, he will continue with his maintenance bronchodilators Symbicort 160/4.5 Spiriva, also Daliresp daily and the short-acting bronchodilators for p.r.n. use. Advised patient to start using Flonase nasal spray twice daily. He will make an appointment to return to pulmonary clinic in approximately 3-4 weeks. (3) Rhinitis, chronic: Code(s): J31.0 - Chronic rhinitis Status: Acute History of Present Illness History of Present Illness Consult date: 02/16/22 Chief complaint: COPD exacerbation/hypoxic respiratory failure Narrative: This 56-year-old man presented to with increasing shortness of breath of 2 days duration. The patient is well known to me. He has got history of asthma COPD overlap symptom, with history of frequent exacerbations recent hospitalization in December of 2021. The patient was in his usual state of health until several days ago when he started having nasal congestion. One day prior to admission he started having shortness of breath and mild coughing. He had no wheezing. Patient has been on Symbicort 160/4.5 inhaler, Spiriva inhaler, Daliresp daily as well as short-acting bronchodilators for asthma COPD overlap syndrome. prior to coming to the emergency room he had used his nebulized short-acting bronchodilator. In the emergency room he was found to have diminished oxyhemoglobin saturation with a walking but no wheezing. Chest CT with IV contrast showed no evidence of pulmonary embolism and no evidence of active lung disease. The patient has been treated with antibiotics for possible lower respiratory tract infection, IV steroids and bronchodilators. Currently he is doing much better. He thinks he is back at baseline. he remains on room air. Review of Systems Review of Systems: All systems reviewed & are unremarkable except as noted in HPI and below PMFSH Past Medical History Medical History Anxiety COPD (chronic obstructive pulmonary disease) Environmental allergies Surgical History Surgical History H/O removal of cyst (~2020) 07/2021 - left supraclavicular area History of melanoma excision 08/2021 - left scapula Family History Family History Mother Breast cancer Social History Social History Smoking packs per day: 2 Smoking cigarettes per day: 40.0 Years smoked: 40 Smoking pack-years: 80.00 Smoking status: Former smoker Tobacco type: cigarettes Second hand tobacco smoke exposure: No Smoking end date: 07/08/21 Alcohol intake: never Substance use: never Substance use type: marijuana Last use: 07/08/2021 Gender identity (if verbalized
--- NOTE | 2022-02-16 13:48 | PM.IMPN ---
Progress Note: A&P Assessment and Plan (1) Hypoxia: Code(s): R09.02 - Hypoxemia Status: Acute Assessment and Plan: Patient is noted to be hypoxic with ambulation. Will treat patient's COPD exacerbation with IV Solu-Medrol and IV azithromycin. Once patient has improved patient will need a walking O2 study to see if he needs home oxygen with ambulation. (2) COPD exacerbation: Code(s): J44.1 - Chronic obstructive pulmonary disease with (acute) exacerbation Status: Acute Assessment and Plan: Chest x-ray shows no acute abnormality CTA shows no PE or any pneumonia, infiltrate or consolidation Patient started on IV azithromycin and ceftriaxone Steroids initiated, titrated down Will place patient on IV azithromycin as well as IV Solu-Medrol. Will also place patient on routine nebulizer treatments and recent do patient's home chronic COPD medications once we do have a verified medication list. (3) Hypertension: Code(s): I10 - Essential (primary) hypertension Status: Acute Assessment and Plan: Current blood pressure 146/71 No current blood pressure medication at home Probably related to hospital course and illness Continue trend blood pressure Consider therapy when indicated Time Spent With Patient Time with patient: Greater than 35 minutes Subjective Date/time seen: 02/16/22 1000 Interval history: 02/15/22 16:55 Narrative: Mr. Vanessa is a 56-year-old male who presented emergency room with complaints of shortness of breath. Patient states he was hospitalized in January with a COPD exacerbation and was feeling very well up until Sunday of this last week. 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 Patient denies any fever or chills. Patient denies any cough. Patient states he has noticed some dyspnea on exertion and has been taking his nebulizer more often than normal. Patient denies any chest pain, lightheadedness, dizziness, syncopal, or near syncopal episodes. Patient denies any palpitations. Upon evaluation in emergency room patient was given Solu-Medrol, azithromycin, and nebulizer treatment. On room air patient's saturations were in the 90s, but unfortunately when he would stand up and attempt to walk his saturations would drop to the 80s. Patient has a known history of COPD, environmental allergies, and anxiety. Patient states he takes hydroxyzine for his anxiety and this works very well. Patient states he has been taking all of his home inhalers without any difficulty, but they have not been helping with this shortness of breath. 02/16/22 1000 Review of Systems Review of Systems: All systems reviewed & are unremarkable except as noted in HPI and below Exam Const: General: cooperative, healthy appearing, no acute distress, well developed, alert and awake Nutritional Appearance: well nourished Orientation/consciousness: patient oriented x3 Limitations: no limitations HENMT: Head: normal to inspection Ears: hearing grossly normal bilaterally General nose exam: Normal external nose present Mouth: Yes Normal oral and palatal mucosa present, Yes lip normal and Yes tongue normal Teeth and gingiva: abnormal tooth and associated gingiva and poor dentition Eyes: General: appearance normal, both eyes and all related structures Neck: Neck: normal visual inspection, full ROM, trachea midline and supple Chest: Chest palpation & inspection: normal inspection of the chest Resp: Effort & Inspection: normal respiratory effort and able to speak in complete sentences Auscultation: clear to auscultation bilaterally Cardio: Jugular venous distension: no JVD Rate: regular rate Rhythm: regular rhythm Heart sounds:
--- NOTE | 2022-02-16 16:02 | HOMEO2EVAL ---
Evaluation was performed at [facility] Home Oxygen Evaluation RC: Home Oxygen (O2) Evaluation Start: 02/16/22 14:26 Freq: ONCE Status: Active Protocol: RPE Activity Type Activity Date Activity User E-Sign Co-Sign Detail Recorded Client Recorded Date Recorded By Document 02/16/22 15:30 JENNIFER [id number] 02/16/22 16:02 JENNIFER Document 02/16/22 15:35 JENNIFER [email or web address] 02/16/22 16:02 JENNIFER Document 02/16/22 15:40 JENNIFER [id number] 02/16/22 16:02 JENNIFER 02/16/22 02/16/22 02/16/22 15:30 15:35 15:40 Home O2 Evaluation Test Phase Resting Exercise Oxygen Delivery Room Air Room Air Pulse Oximetry (90-100 %) 94 92 94 Pulse Rate (60-100 beats/min) 93 108 H 95 Activity Tolerance Excellent Ambulation Distance (feet) 300 Ambulation Distance (meters) 91.43 Home Oxygen Evaluation Comments NO HOME O2 NEEDED Treatment Charges O2 Evaluation - Inpatient
--- NOTE | 2022-02-16 16:03 | PCRCNOTE ---
HOME O2 EVAL DONE, NO HOME O2 NEEDED
== END 2022-02-16 16:35 | disposition home or self-care (01) ==
LOC: ANHED 15:23 → ANH3MEDSUR 02-16 08:44
PROVIDERS: Nurse Practitioner Adult Health; Admitting Provider Family Medicine; Emergency Provider Emergency Medicine; PCP Family Medicine; Visit Provider Nurse Practitioner
DX: J44.1 Chronic obstructive pulmonary disease with (acute) exacerbation (principal); J98.01 Acute bronchospasm; R09.02 Hypoxemia; J31.0 Chronic rhinitis; R03.0 Elevated blood-pressure reading, without diagnosis of hypertension; F41.9 Anxiety disorder, unspecified; Z20.822 Contact with and (suspected) exposure to COVID-19; Z85.820 Personal history of malignant melanoma of skin; Z87.891 Personal history of nicotine dependence
CPT/HCPCS: 36415; 71046; 71275; 80048; 83735; 85025; 93005; 94618; 94640; 96365; 96366; 96372; 96374; 96375; 96376; 99285; A9270; C9803; G0378; J0456; J0696; J1650; J2930; Q9967; U0003; U0005

== ENCOUNTER → 2022-04-20 09:27 | Outpatient (CLI) | payer BC, SELFPAY ==
--- NOTE | ~2022-04-20 | XR_ITS ---
XR hand LT min 3V DATE: 04/20/2022 09:47 INDICATION: Hand and finger pain TECHNIQUE: 3 views of left hand COMPARISON: None FINDINGS: No fracture or dislocation, periosteal reaction or bone destruction or erosive change or ch ondrocalcinosis. Mild osteoarthritis, best demonstrated at the distal interphalangeal joint of the second digit. IMPRESSION: Mild osteoarthritis Reviewed, dictated and finalized at location A. IMPRESSION: Mild osteoarthritis
--- NOTE | ~2022-04-20 | XR_ITS ---
XR hand RT min 3V DATE: 04/20/2022 09:47 INDICATION: Hand and finger pain TECHNIQUE: 3 views COMPARISON: None FINDINGS: No fracture, dislocation, periosteal reaction or bone destruction, erosive change or chondr ocalcinosis. There is mild osteoarthritis primarily involving the distal interphalangeal joints. IMPRESSION: Mild osteoarthritis Reviewed, dictated and finalized at location A. IMPRESSION: Mild osteoarthritis
--- NOTE | ~2022-04-20 | XR_ITS ---
XR chest 2V DATE: 04/20/2022 09:47 INDICATION: COPD. Hand and finger pain. TECHNIQUE: 2 views COMPARISON: 02/15/2022 CT pulmonary scan 02/15/2022 2 view chest FINDINGS: Normal heart size. No hilar or mediastinal enlargement. Bilateral hyperinflation. No pulmon dianna infiltrate or consolidation, pleural effusion or pulmonary vascular congestion or pneumothorax is detected. IMPRESSION: Bilateral hyperinflation Reviewed, dictated and finalized at location A. IMPRESSION: Bilateral hyperinflation
== END ==
PROVIDERS: PCP Emergency Medicine; Visit Provider Emergency Medicine
DX: J44.9 Chronic obstructive pulmonary disease, unspecified (principal); M19.041 Primary osteoarthritis, right hand; M19.042 Primary osteoarthritis, left hand; R91.8 Other nonspecific abnormal finding of lung field
CPT/HCPCS: 71046; 73130

== ENCOUNTER 2022-05-14 13:41 | Emergency (ER) | payer BC, SELFPAY ==
--- NOTE | ~2022-05-14 | XR_ITS ---
XR chest 2V DATE: 05/14/2022 14:10 INDICATION: Shortness of breath. History of COPD. TECHNIQUE: PA and lateral views COMPARISON: 04/20/2022 2 view chest FINDINGS: Bilateral hyperinflation consistent with COPD. No pulmonary infiltrate or consolidation, pl eural effusion or pulmonary vascular congestion or pneumothorax. Normal heart size. No hilar or media stinal enlargement. IMPRESSION: Moderate hyperinflation; no active cardiopulmonary disease Reviewed, dictated and finalized at location A.
--- NOTE | 2022-05-14 13:50 | ECG_ITS ---
Measurements Intervals [place] Rate: 89 P: 69 IN: 123 QRS: 93 QRSD: 150 T: 44 QT: 378 QTc: 460 Interpretive Statements SINUS RHYTHM RIGHT BUNDLE BRANCH BLOCK [120+ ms QRS DURATION, UPRIGHT V1, 40+ ms S IN I/aVL/V4/V5/V6] COMPARED TO ECG 02/15/2022 13:22:40 NO SIGNIFICANT CHANGES Electronically Signed On 05-15-2022 14:13:46 CDT by Luisito Don M.D.
[2022-05-14 14:04] LABS: Hematocrit 44.6 % (42.0-52.0); Hemoglobin 14.8 g/dL (14.0-18.0); Mean Corpuscular HGB Conc 33.2 g/dl (32-36); Mean Corpuscular Hemoglobin 30.1 pg (26-34); Mean Corpuscular Volume 90.7 fl (80-100); Mean Platelet Volume 8.8 fl (7.4-10.4); Platelet Count Result 367 k/mm3 (150-375); Red Blood Count 4.92 M/mm3 (4.6-6.20); Red Cell Distribution Width 12.1 % (11.5-14.5); White Blood Count 8.1 K/mm3 (4.5-10.0)
[2022-05-14 14:15] LABS: Alanine Aminotransferase 30 U/L (6-50); Albumin Level 4.5 g/dL (3.5-5.1); Alkaline Phosphatase 64 U/L (38-126); Anion Gap 11 mmol/L (8-16); Aspartate Amino Transferase 31 U/L (17-59); Bilirubin,Total 0.5 mg/dL (0.2-1.3); Blood Urea Nitrogen 10 mg/dL (9-20); Calcium 8.7 mg/dL (8.4-10.2); Carbon Dioxide 25 mmol/L (22-30); Chloride 102 mmol/L (98-107); Estimated CRCL calculation 65 ml/min; Estimated Glomerular Filt Rate > 60; Glucose 108 mg/dL (65-110); Potassium 4.4 mmol/L (3.4-5.0); Sodium 138 mmol/L (137-145)
[2022-05-14 14:26] VITALS: PULSE 84; O2SAT 92
[2022-05-14 14:41] LABS: Eosinophils Absolute Manual 0.89 K/mm3 (0.02-0.5); Eosinophils Percent Manual 11 % (0-4); Lymphocytes Absolute Manual 1.62 K/mm3 (1.1-4.5); Monocytes Percent Manual 5 % (3-9); Neutrophils Percent Manual 64 % (46-73); Platelet Estimate Adequate (Adequate); Total Cells Counted 100
[2022-05-14] MEDS: ALBUTEROL SULFATE NEB 2.5 MG/3 ML INH 5 MG INHALATION (14:45)
[2022-05-14] MEDS: IPRATROPIUM BR 0.02% INH SOLN 0.5 MG/2.5 ML VIAL INHALATION (14:45)
[2022-05-14 14:46] VITALS: PULSE 84; RESP 20
[2022-05-14] MEDS: methylPREDNISolone SOD SUCC 125 MG VIAL IV PUSH (14:47)
[2022-05-14 14:56] VITALS: PULSE 84; RESP 20
--- NOTE | 2022-05-14 15:35 | ED.SOB ---
HPI - SOB/Dyspnea General Chief Complaint: Shortness of Breath/Dyspnea Stated Complaint: SOB Time Seen by Provider: 05/14/22 14:01 History of Present Illness HPI Narrative: Patient is a 56-year-old male who presents ER with shortness of breath. Has history of COPD. Worse over the last couple days. Has been wheezing. Received a nebulizer treatment by EMS and is feeling improved. No fevers or chills or sweats. No chest pain or chest pressure. Related Data Home Medications Medication Instructions Recorded Confirmed albuterol sulfate 90 mcg/actuation 2 puff inhalation PRN PRN Wheezing 12/24/21 02/15/22 aerosol inhaler Allergies Allergy/AdvReac Type Severity Reaction Status Date / Time No Known Allergies Allergy Verified 05/14/22 14:28 Review of Systems Review of Systems: All systems reviewed & are unremarkable except as noted in HPI and below Constitutional: Constitutional: Denies chills and Denies fever(s) ENT: Denies nasal congestion and Denies sore throat Cardiovascular: Cardiovascular: Denies chest pain, Denies rapid heart rate and Denies radiating jaw, neck or arm pain Respiratory: Respiratory: Reports cough, Reports dyspnea and Reports wheezing Gastrointestinal: Gastrointestinal: Denies abdominal pain, Denies nausea and Denies vomiting PMFSH Past Medical History Medical History Anxiety COPD (chronic obstructive pulmonary disease) Environmental allergies Surgical History Surgical History H/O removal of cyst (~2020) 07/2021 - left supraclavicular area History of melanoma excision 08/2021 - left scapula Family History Family History Mother Breast cancer Social History Social History Smoking packs per day: 2 Smoking cigarettes per day: 40.0 Years smoked: 40 Smoking pack-years: 80.00 Smoking status: Former smoker Tobacco type: cigarettes Second hand tobacco smoke exposure: No Smoking end date: 07/08/21 Alcohol intake: never Substance use: never Substance use type: marijuana Last use: 07/08/2021 Gender identity (if verbalized by the patient): Male Sexual Orientation (if Verbalized by the Patient): Straight or Heterosexual Spiritual care concerns: No Exam Narrative: GENERAL: Well-appearing, well-nourished, and in no acute distress. HEAD: Normocephalic, atraumatic. EYES: PERRL and EOMI. ENT: Mucous membranes moist. CHEST: Nose throughout with expiratory wheezing. No respiratory distress. HEART: Regular rate and rhythm. Normal peripheral pulses. ABDOMEN: Soft, nontender, nondistended. EXTREMITIES: Normal range of motion. No edema. SKIN: Warm, dry, no rash. NEURO: Alert and oriented x3. PSYCH: Normal mood and affect. Course Course Emergency Course: Improved with nebulizer treatment. Will place on steroids for home. Vital Signs Vital signs: Vital Signs Pulse Rate 84 05/14/22 14:26 Pulse Oximetry 92 05/14/22 14:26 Oxygen Delivery Room Air 05/14/22 14:26 Pulse Rate 69 05/14/22 17:13 Respiratory Rate 18 05/14/22 17:13 Blood Pressure 120/68 05/14/22 17:13 Pulse Oximetry 97 05/14/22 17:13 Oxygen Delivery Room Air 05/14/22 14:26 MDM - SOB/Dyspnea Lab Data Result diagrams: 05/14/22 13:53 05/14/22 13:53 Labs: Lab Results 05/14/22 05/14/22 Range/Units 13:53 13:53 WBC 8.1 (4.5-10.0) K/mm3 RBC 4.92 (4.6-6.20) M/mm3 Hgb 14.8 (14.0-18.0) g/dL Hct 44.6 (42.0-52.0) % MCV 90.7 (80-100) fl MCH 30.1 (26-34) pg MCHC 33.2 (32-36) g/dl RDW 12.1 (11.5-14.5) % Plt Count 367 (150-375) k/mm3 MPV 8.8 (7.4-10.4) fl Immature Gran % (Auto) Not Reportable Neut % (Auto) Not Reportable Lymph % (Auto) Not Reportabl
[2022-05-14 16:52] VITALS: BP 131/79; PULSE 83; RESP 18; O2SAT 96
[2022-05-14 17:13] VITALS: BP 120/68; PULSE 69; RESP 18; O2SAT 97
== END 2022-05-14 17:17 | disposition home or self-care (01) ==
PROVIDERS: Emergency Provider Emergency Medicine; PCP Emergency Medicine
DX: J44.1 Chronic obstructive pulmonary disease with (acute) exacerbation (principal); Z85.820 Personal history of malignant melanoma of skin; Z87.891 Personal history of nicotine dependence; I45.10 Unspecified right bundle-branch block
CPT/HCPCS: 36415; 71046; 80053; 85025; 93005; 94640; 96374; 99284; J2930

== ENCOUNTER 2025-06-15 12:00 | Outpatient (CLI) | payer MEDICARE, SELFPAY ==
--- OUTSIDE RECORDS SUMMARY | 2025-06-15 11:30 | XMS_ITS | Encounter Summary ---
Author Organization [facility] Address [address] [place] [address] Care Team Providers Care Sweatband Maker Name Role Phone Syed Matthews MD Primary Care Provider [phone] Reason for Referral * Laboratory Services (Routine) - Open Specialty Diagnoses / Procedures Referred By Kaur henderson Referred To Contact Diagnoses Elevated platelet count Procedures MPL EXON 10 MUTATION DETECTION Jessica Kumar MD [address] [place] [address] Phone: tel: fax: Referral ID Status Reason Start Date Expiration Date Visits Re quested Visits Authorized [id number] Open 06/15/2025 07/16/2026 1 1 * Laboratory Services (Routine) - Open Specialty Diagnoses / Procedures Referred By Kaur henderson Referred To Contact Diagnoses Elevated platelet count Procedures JAK2 MUTATION Jessica Kumar MD [address] [place] [address] Phone: tel: fax: Referral ID Status Reason Start Date Expiration Date Visits Re quested Visits Authorized [id number] Open 06/15/2025 07/16/2026 1 1 Encounter Details Date Type Department Care Team (Late st Contact Info) Description 06/15/2025 11:30 AM CDT Office Visit [facility] Oncology and Hematology - [address] [place] [address] Jessica Kumar MD [address] [place] [address] Elevated platelet count (Primary Dx) Social History Tobacco Use Types Packs/Day Years Used Date Smoking Tobacco: Former Cigarettes 1.5 40 0 06/15/1981 - 06/15/2021 Smokeless Tobacco: Never Tobacco Cessation:Counseling Given: Not Answered Alcohol Use Standard Drinks/Week Comments Not Currently 0 (1 standard drink = 0.6 oz pur e alcohol) 27 years no alcohol Sex and Gender Information Value Date Recorded Sex Assigned at Not on file Legal Sex Male 8:13 AM CDT Gender Identity Not on file Sexual Orientation Not on file documented as of this encounter Last Filed Vital Signs Vital Sign Reading Time Taken Comments Blood Pressure 159/98 06/15/2025 11:23 AM CDT Pulse 66 06/15/2025 11:21 AM CDT Temperature 36.4 C (97.5 F) 06/15/2025 11:21 AM CDT Respiratory Rate 16 06/15/2025 11:21 AM CDT Oxygen Saturation 94% 06/15/2025 11:21 AM CDT Inhaled Oxygen Concentration - - Weight 109.3 kg (241 lb) 06/15/2025 11:21 AM CDT Height 170.2 cm (5' 7) 06/15/2025 11:21 AM CDT Body Mass Index 37.75 06/15/2025 11:21 AM CDT documented in this encounter Plan of Treatment Upcoming Encounters Date Type Department Care Team (Late st Contact Info) Description 07/13/2025 4:30 PM CDT Telephone Check Up [facility] Oncology and Hematology - [address] [place] [address] Lucio Luis MD [address] [facility] [address] [place] [address] Scheduled Orders Name Type Priority Associated Diagnoses Orde r Schedule CBC WITH DIFFERENTIAL Lab Stat Elevated platelet count Expected: 06/15/2025, Expires: 06/15/2026 COMPREHENSIVE METABOLIC PANEL Lab Stat Elevated platelet count Expected: 06/15/2025, Expires: 06/15/2026 C-REACTIVE PROTEIN Lab Routine Elevated platelet count Expected: 06/15/2025, Expires: 06/15/2026 FERRITIN Lab Routine Elevated platelet count Expected: 06/15/2025, Expires: 06/15/2026 IRON, TIBC, AND PERCENT SATURATION Lab Routine Elevated platelet count Expected: 06/15/2025, Expires: 06/15/2026 SEDIMENTATION RATE Lab Routine Elevated platelet count Expected: 06/15/2025, Expires: 06/15/2026 JAK2 MUTATION Lab Routine Elevated platelet count Expected: 06/15/2025, Expires: 06/15/2026 MPL EXON 10 MUTATION DETECTION Lab Routine Elevated platelet count Expected: 06/15/2025, Expires: 06/15/2026 MISCELLANEOUS LAB TEST Lab Routine Elevated platelet count Expected: 06/15/2025, Expires: 06/15/2026 documented as of this encounter Visit Diagnoses Diagnosis Elevated platelet count- Primary Essential thrombocythemia documented in this encounter Care Teams Sweatband Maker Relationship Specialty Start Date End Date Syed Matthews MD [address] [place] [id number] PCP - General Family Practice 03/18/25 documented as of this encounter
--- OUTSIDE RECORDS SUMMARY | 2025-06-15 12:08 | XMS_ITS | Clinical Summary ---
Author Organization [facility] Address [address] [place] [address] Care Team Providers Care City Route Driver Name Role Phone Ansley Atkins MD Primary Care Provider Social History Tobacco Use Types Packs/Day Years Used Date Smoking Tobacco: Never Assessed Sex and Gender Information Value Date Recorded Sex Assigned at Not on file Legal Sex Male 9:28 AM CDT Gender Identity Not on file Sexual Orientation Not on file Plan of Treatment Health Maintenance Due Date Last Done Comments Colorectal Cancer Screening Colonoscopy (10 Years) 1963 Annual Physical 1966 Hepatitis C 1981 DTaP, Tdap and Td Vaccines ( 1 - Tdap) 1982 Pneumococcal Vaccine: 50+ Ye ars (1 of 1 - PCV) 2013 Zoster Vaccines (1 of 2) 2013 COVID-19 Vaccine (1 - 2023-2 5 season) 2025 RSV Immunization or 60+ Years (1 - 1-dose 75+ series) 2038 Meningococcal B Vaccine Aged Out No l onger eligible based on patient's age to complete this topic Meningococcal Vaccine Aged Out No eli dana eligible based on patient's age to complete this topic RSV Immunizations Under 20 Months Aged Out No longer eligible based on patient's age to complete this topic Insurance [facility] C/O [employer] [id number] Care Teams City Route Driver Relationship Specialty Start Date End Date Ansley Atkins MD [address] [place] [address] PCP - General FAMILY PRACTICE 06/08/21
--- OUTSIDE RECORDS SUMMARY | 2025-06-15 12:08 | XMS_ITS ---
Author Organization [facility] Address [address] [place] [address] Care Team Providers Care Stock Preparation Operator Name Role Phone Syed Matthews MD Primary Care Provider [phone] Active Problems Patient Care Coordination No te Formatting of this note migh t be different from the original. Referring Provider: Monty Lee MD This is a 57-year-old male presenting to us with a newly diagnosed esophageal cancer. He is a medical history significant for COPD and melanoma. He is a former smoker who quit in 2020. He underwent an upper endoscopy on 12/21/2022 to further evaluate symptoms of bloating and dysphagia. The duodenum was normal. No ulcers, lesions, or masses were noted. Stomach was grossly normal. AJ turn maneuver revealed a normal fundus. Esophagus revealed ulcerative esophagitis. Biopsies were taken. 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 He is here for further surgical evaluation and discussion. Problem Noted Date Diagnosed Date Moderate persistent asthma without complication 11/13/2023 Malignant neoplasm of esophagus 02/07/2023 Leucocytosis 06/03/2021 Chronic obstructive pulmonary disease 10/14/2020 Current Treatment and Therapy Plans No current plan information found. Past Treatment and Therapy Plans No past plan information found. Lifetime Dose Tracking * Chemical Lifetime Dose Automatic Entry Manual Entr y DLP 350.9 mGycm 350.9 mGycm 0 mGycm CTDIvol 9.38 mGy 9.38 mGy 0 mGy
--- OUTSIDE RECORDS SUMMARY | 2025-06-15 12:08 | XMS_ITS | Clinical Summary ---
Author Organization [facility] Address [address] [facility] [address] [place] [address] Phone Care Team Providers Care Barrel Brander Name Role Phone Ansley Atkins MD Primary Care Provider Allergies No known active allergies Medications albuterol 108 (90 Base) MCG/ACT Aerosol Solution INHALE 2 PUFFS BY MOUTH 4 TIMES DAILY NEEDED FOR SHORTNESS OF BREATH FOR WHEEZING 1 Active Symbicort 160-4.5 MCG/ACT Aerosol INHALE 2 PUFFS BY MOUTH EVERY 12 HOURS 1 Active fluticasone (FLONASE) 50 MCG/ACT Suspension USE 2 SPRAY(S) IN EACH NOSTRIL ONCE DAILY 1 Active hydrOXYzine (ATARAX) 25 MG Tablet TAKE 1 TABLET BY MOUTH TWICE DAILY NEEDED FOR ANXIETY 1 Active loratadine (CLARITIN) 10 MG Tablet TAKE 1 TABLET BY MOUTH ONCE DAILY 1 Active sildenafil citrate (VIAGRA) 100 MG Tablet TAKE ONE TABLET BY MOUTH APPROXIMATELY 30 MINUTES TO 4 HOURS BEFORE SEXUAL ACTIVITY. 1 Active aspirin EC 81 MG Tablet Delayed Response Take 81 mg by mouth daily. Active diphenhydrAMIN E (Benadryl Allergy) 25 MG Tablet Take 25 mg by mouth every 6 hours as needed. Active Active Problems Problem Noted Date Diagnosed Date Leucocytosis 06/03/2021 Family History Medical History Relation Name Comments Breast Cancer Mother Relation Name Status Comments Mother Social History Tobacco Use Types Packs/Day Years Used Date Smoking Tobacco: Every Day Cigarettes Smokeless Tobacco: Never Alcohol Use Standard Drinks/Week Comments Not Currently 0 (1 standard drink = 0.6 oz pur e alcohol) PHQ-2 Answer Date Recorded Total Score - Questions 1-9 0 06/09 Sex and Gender Information Value Date Recorded Sex Assigned at Not on file Legal Sex Male 1:57 PM CDT Gender Identity Not on file Sexual Orientation Not on file Last Filed Vital Signs Vital Sign Reading Time Taken Comments Blood Pressure 120/72 07/01/2021 11:23 AM CDT Pulse 76 07/01/2021 11:23 AM CDT Temperature 36.6 C (97.8 F) 07/01/2021 11:23 AM CDT Respiratory Rate 18 07/01/2021 11:2 3 AM CDT Oxygen Saturation 94% 07/01/2021 11: 23 AM CDT Inhaled Oxygen Concentration - - Weight 77.5 kg (170 lb 12.8 oz) 021 11:23 AM CDT Height 175.3 cm (5' 9) 07/01/2021 11:2 3 AM CDT Body Mass Index 25.22 07/01/2021 11:23 AM CDT Plan of Treatment Health Maintenance Due Date Last Done Comments Hepatitis C Virus (HCV) Screening 1965 TdaP Immunization 1965 Cologuard 2008 Colonoscopy 2008 Colorectal Cancer Screening 2008 Immunochemical Fecal Occult Blood 2008 Pneumococcal Immunization (5 0+ years) (1 of 1 - PCV) 2013 Zoster Immunization (1 of 2) 2013 Influenza Immunization (#1) 2025 SARS-COV-2 Immunization ( - season) 2025 Respiratory Syncytial Virus (RSV) Immunization (Adult) (1 - 1-dose 75+ series) 2038 Hepatitis B Immunization Aged Out No longer eligible based on patient's age to complete this topic Human Papillomavirus (HPV) Immunization Aged Out No longer eligible b ased on patient's age to complete this topic Meningococcal Immunization (ACWY) Aged Out No longer eligible based on patient's age to complete this topic Rotavirus Immunization Aged Out No lo nger eligible based on patient's age to complete this topic Insurance [place]ID [employer] [place] [place] [employer] [id number] Care Teams Barrel Brander Relationship Specialty Start Date End Date Ansley Atkins MD PCP - General Family Medicine 06/02/21
--- OUTSIDE RECORDS SUMMARY | 2025-06-15 12:08 | XMS_ITS | Clinical Summary ---
Author Organization [facility] Address [address] [place] [address] Care Team Providers Care Cage Unloader Name Role Phone Syed Matthews MD Primary Care Provider [phone] Allergies No known active allergies Medications PARoxetine (PAXIL) 10 mg tablet Take 1 tablet (10 mg total) by mouth every morning Active hydroCHLOROthia zide (MICROZIDE) 12.5 mg capsule Take 1 capsule (12.5 mg total) by mouth daily Active latanoprost (XALATAN) 0.005 % ophthalmic solution 1 drop nightly Activ e dorzolamide-candido oloL (COSOPT) 22.3-6.8 mg/mL ophthalmic solution dorzolamide-ti molol 22.3-6.8 mg/mL drops 10/08/18 70 Active rosuvastatin (CRESTOR) 40 mg tablet Take 1 tablet (40 mg total) by mouth daily Active ipratropium-alb uteroL (DUO-NEB) 0.5-2.5 mg/3 mL nebulizer solutionIndicat ions:Moderate persistent asthma without complication INHALE 1 VIAL BY MOUTH 4 TIMES A DAY NEEDED FOR WHEEZING OR FOR SHORTNESS OF BREATH 90 mL 3 10/10/19 24 Active albuterol HFA (PROVENTIL HFA,VENTOLIN HFA,PROAIR HFA) 90 mcg/actuation inhaler Inhale 2 puffs every 4 (four) hours as needed for wheezing 18 g 3 11/29/19 24 Active mepolizumab (Nucala) 100 mg/mL auto-injector Inject 1 mL (100 mg total) under the skin every 28 (twenty-eight) days 1 mL 5 02/11/20 25 Active Additional Information Patient not taking.Reported on 06/12/2025 montelukast (SINGULAIR) 10 mg tabletIndicatio ns:Moderate persistent asthma without complication Take 1 tablet (10 mg total) by mouth nightly 90 tablet 3 05/22/20 25 Active budesonide-form oteroL (Breyna) 160-4.5 mcg/actuation inhaler INHALE 2 PUFFS TWICE DAILY RINSE MOUTH AFTER USE 11 g 1 05/25/20 25 Active Allergy Relief, loratadine, 10 mg tablet Take 1 tablet by mouth once daily 90 tablet 06/04/20 25 Active Incruse Ellipta 62.5 mcg/actuation blister with device Inhale 1 puff by mouth once daily 30 each 06/10/20 25 Active methylPREDNISol one (Medrol, Vineet,) 4 mg DosepackIndicat ions:Severe persistent asthma without complication (HCC) follow package directions 1 packet 06/12/20 25 Active azithromycin (ZITHROMAX) 250 mg tabletIndicatio ns:Severe persistent asthma without complication (HCC) Take 2 tablets (500 mg total) by mouth daily for 1 day, THEN 1 tablet (250 mg total) daily for 4 days. 6 tablet 06/12/20 25 2024 Active ergocalciferol (VITAMIN D) 50,000 unit capsule Take 1 capsule (50,000 Units total) by mouth once a week 04/27/20 22 2024 Discontinued(P atient Reported) fluticasone propionate (FLONASE) 50 mcg/actuation nasal spray USE 2 SPRAY(S) IN EACH NOSTRIL ONCE DAILY 05/23/20 21 2024 Discontinued(P atient Reported) hydrOXYzine (ATARAX) 25 mg tablet Take by mouth 2 (two) times a day as needed 05/21/20 21 2024 Discontinued(P atient Reported) omeprazole (PriLOSEC) 20 mg capsule Take 1 capsule (20 mg total) by mouth daily 2024 Discontinued(P atient Reported) mepolizumab (Nucala) 100 mg/mL auto-injector INJECT 1 PEN UNDER THE SKIN EVERY 28 DAYS 100 mL 11 06/13/20 24 2024 Discontinued(D uplicate order) montelukast (SINGULAIR) 10 mg tabletIndicatio ns:Moderate persistent asthma without complication Take 1 tablet by mouth nightly 90 tablet 02/25/20 25 2024 Discontinued Allergy Relief, loratadine, 10 mg tablet Take 1 tablet by mouth once daily 90 tablet 03/11/20 25 2024 Discontinued umeclidinium (Incruse Ellipta) 62.5 mcg/actuation blister with device Inhale 1 puff by mouth once daily 30 each 2 03/18/20 25 2024 Discontinued Breyna 160-4.5 mcg/actuation inhaler INHALE 2 PUFFS TWICE DAILY RINSE MOUTH AFTER USE 11 g 04/27/20 25 2024 Discontinued montelukast (SINGULAIR) 10 mg tabletIndicatio ns:Moderate persistent asthma without complication Take 1 tablet by mouth nightly 90 tablet 3 05/22/20 25 2024 Discontinued(O ther) Active Problems Patient Care Coordination No te [...] Leucocytosis 06/03/2021 Chronic obstructive pulmonary disease 10/14/2020 Encounters Date Type Department Care Team Description 06/12/2025 11:30 AM CDT Office Visit [facility] Pulmonology [address] [place] [phone] Kwame Iqbal MD Severe persistent asthma without complication (HCC) (Primary Dx); Chronic obstructive pulmonary disease, unspecified COPD type (HCC); Cigarette nicotine dependence in remission; Non-seasonal allergic rhinitis due to other allergic trigger 06/12/2025 Telephone [facility] Pulmonology [address] [facility] [address] [place] [address] Karen Mabry MA earlier appointment available. 06/10/2025 2:45 PM CDT - 06/10/2025 11:59 PM CDT Hospital Encounter [facility] [address] [place] [address] Cigarette nicotine dependence in remission Discharge Disposition: Discharge to home or self care 06/10/2025 1:43 PM CDT - 06/10/2025 11:59 PM CDT Hospital Encounter [facility] [address] [place] [address] Severe persistent asthma without complication (HCC) Discharge Disposition: Discharge to home or self care from Last 3 Months Surgical History Surgery Date Site/Laterality Comments MELANOMA RESECTION 10/08/2020 - 10/07/2021 On back Medical History Medical History Date Comments COPD (chronic obstructive pulmonary disease) Asthma Anxiety Hyperlipidemia Family History Medical History Relation Name Comments Cancer Mother Relation Name Status Comments Mother Social History Tobacco Use Types Packs/Day Years Used Date Smoking Tobacco: Former Cigarettes 1.5 40 1 - 07/16/2021 Tobacco Cessation:Counseling Given: Not Answered AUDIT-C Answer Date Recorded Q1: How often do you have a drink containing alcohol? Never 02/09/2023 Q2: How many drinks containi ng alcohol do you have on a typical day when you are drinking? Patient does not drink Q3: How often do you have si x or more drinks on one occasion? Never 02/09/2023 Personal Safety Answer Date Recorded Have you ever been in or are you currently in a harmful physical or emotional relationship or is someone making you feel afraid or unsafe? 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 Gender Identity Not on file Sexual Orientation Not on file Obstetrics History Last Filed Vital Signs Vital Sign Reading Time Taken Comments Blood Pressure 160/77 06/12/2025 10:49 AM CDT Pulse 67 06/12/2025 10:49 AM CDT Temperature 36.4 C (97.6 F) 06/12/2025 10:49 AM CDT Respiratory Rate 18 06/12/2025 10:49 AM CDT Oxygen Saturation 95% 06/12/2025 10:49 AM CDT Inhaled Oxygen Concentration - - Weight 109.3 kg (241 lb) 06/12/2025 10:49 AM CDT Height 172.7 cm (5' 8) 06/12/2025 10:49 AM CDT Body Mass Index 36.64 06/12/2025 10:49 AM CDT Plan of Treatment Health Maintenance Due Date Last Done Comments Colon Cancer Screening-Colonoscopy 1963 Depression Screening 1963 Hepatitis C Screening 1963 Prostate Cancer Screening-PSA 1963 DTaP/Tdap/Td Vaccine (1 - Tdap) 1974 Hepatitis B Screening 1981 Regular Well Visit/Exam 18-64 1981 Pneumococcal vaccine <65 (1 of 2 - PCV) 1982 Zoster Vaccine (1 of 2) 2013 Influenza Vaccine (#1) 2025 Lung Cancer Screening 06/11/2026 06/10/2025 , 06/06/2024, 05/21/2023, Additional history exists Procedures Procedure Name Priority Date/Time Associated Diagnosis Comments PULMONARY FUNCTION TEST (PFT) Routine 06/10/2025 3:00 PM CDT Severe persistent asthma without complication (HCC) CT LUNG CANCER SCREENING Schedule Routine, Read Routine (OP Routine) 06/10/2025 2:53 PM CDT Cigarette nicotine dependence in remission from Last 3 Months Results * CT Lung Cancer Screening (06/10/2025 2:53 PM CDT) Anatomical Region Laterality Modality Chest N/A Computed Tomogra phy 06/11/2025 4:29 PM CDT Narrative 06/11/2025 4:32 PM CDT EXAM DESCRIPTION: CT LUNG CANCER SCREENING REASON FOR STUDY: Screening CT of the chest in a former smoker with a 60 pack year smoking history. Additional history: None. TECHNIQUE: Low dose CT scan of the chest was performed without intravenous contrast using helical scanning technique. The exam extends from the lung apices through the lung bases. Automatic exposure control was used as a dose optimization technique. NOTE: This study was performed for the specific purposes of lung cancer screening and is not an alternative to diagnostic chest CT. RADIATION DOSE: CT dose index volume (CTDIvol) = 2.39 mGy COMPARISON: 06/06/2024 FINDINGS: SMOKING RELATED LUNG DISEASE: There are mild emphysematous changes of lungs with scattered mild subsegmental atelectasis and scarring. There is no definite evidence of a pneumothorax. There are scattered mild bronchial wall thickening, which is likely related to mild chronic bronchitis/bronchiolitis. There is no definite evidence of a focal consolidation or pleural effusion. LUNG NODULES: There are scattered small pulmonary nodules noted, similar to the prior study. For example, there is a grossly stable subtle 0.3 cm pulmonary nodule in the posterior right lower lobe (axial image 198). There is a stable irregular 0.4 cm pulmonary nodule in the anterior left upper lobe (axial image 70). There is a grossly stable subpleural 0.2 cm pulmonary nodule in the anterior left upper lobe (axial image 85). CORONARY ARTERY CALCIFICATION: Present. OTHER: The heart size is stable. There is no definite evidence of pericardial effusion. There are atherosclerotic changes of the thoracic aorta and coronary vessels. There is no definite unenhanced CT evidence of mediastinal, hilar, or axillary lymphadenopathy. There are scattered prominent subcentimeter mediastinal lymph nodes noted with largest measuring 0.8 cm in the subcarinal region (axial image 149). There is mild mucosal thickening of the esophagus. There is a small hiatal hernia. The visualized portions of the bilateral adrenal glands are grossly stable and unremarkable. There is mild osteopenia. There is minimal to mild dextroscoliotic curvature of the spine with degenerative changes. IMPRESSION: 1. Redemonstration of scattered small pulmonary nodules measuring up to 0.4 cm, similar to the prior study. No definite evidence of a new suspicious pulmonary nodule. 2. Mild emphysematous changes of lungs with scattered mild subsegmental atelectasis and scarring. 3. Scattered mild bronchial wall thickening, which is likely related to mild chronic bronchitis/bronchiolitis. 4. Mild mucosal thickening of the esophagus, which may be related to underdistention versus esophagitis. This may be further evaluated with endoscopy as clinically indicated. Lung-RADS category 2: Benign appearance or behavior. Recommendation: Low dose Screening CT of chest in 12 months. THIS IS AN ELECTRONICALLY VERIFIED FINAL REPORT 06/11/2025 4:32 PM - Electronically signed by Lia FISH T: Report ID: [id number] Reading Location: [place] [address] Procedure Note Lia Cali, DO - 06/11/2025 EXAM DESCRIPTION: CT LUNG CANCER SCREENING REASON FOR STUDY: Screening CT of the chest in a former smoker with a60 pack year smoking history. Additional history: None. TECHNIQUE: Low dose CT scan of the chest was performed without intravenous contrast using helical scanning technique. The exam extends from the lung apices through the lung bases. Automatic exposure control was used as adose optimization technique. NOTE: This study was performed for the specific purposes of lung cancer screening and is not an alternative to diagnostic chest CT. RADIATION DOSE: CT dose index volume (CTDIvol) = 2.39 mGy COMPARISON: 06/06/2024 FINDINGS: SMOKING RELATED LUNG DISEASE: There are mild emphysematouschanges of lungs with scattered mild subsegmental atelectasis and scarring. Thereis no definite evidence of a pneumothorax. There are scattered mildbronchial wall thickening, which is likely related to mild chronic bronchitis/bronchiolitis. There is no definite evidence of a focal consolidation or pleural effusion. LUNG NODULES: There are scattered small pulmonary nodules noted, similarto the prior study. For example, there is a grossly stable subtle 0.3 cm pulmonary nodule in the posterior right lower lobe (axial image 198).There is a stable irregular 0.4 cm pulmonary nodule in the anterior left upperlobe (axial image 70). There is a grossly stable subpleural 0.2 cm pulmonary nodule in the anterior left upper lobe (axial image 85). CORONARY ARTERY CALCIFICATION: Present. OTHER: The heart size is stable. There is no definite evidence of pericardial effusion. There are atherosclerotic changes of the thoracicaorta and coronary vessels. There is no definite unenhanced CT evidence of mediastinal, hilar, oraxillary lymphadenopathy. There are scattered prominent subcentimeter mediastinal lymph nodes noted with largest measuring 0.8 cm in the subcarinal region (axial image 149). There is mild mucosal thickening of the esophagus. There is a smallhiatal hernia. The visualized portions of the bilateral adrenal glands aregrossly stable and unremarkable. There is mild osteopenia. There is minimal to mild dextroscolioticcurvature of the spine with degenerative changes. IMPRESSION: 1. Redemonstration of scattered small pulmonary nodules measuring up to0.4 cm, similar to the prior study. No definite evidence of a new suspicious pulmonary nodule. 2. Mild emphysematous changes of lungs with scattered mild subsegmental atelectasis and scarring. 3. Scattered mild bronchial wall thickening, which is likely related tomild chronic bronchitis/bronchiolitis. 4. Mild mucosal thickening of the esophagus, which may be related to underdistention versus esophagitis. This may be further evaluated with endoscopy as clinically indicated. Lung-RADS category 2: Benign appearance or behavior. Recommendation: Low dose Screening CT of chest in 12 months. THIS IS AN ELECTRONICALLY VERIFIED FINAL REPORT 06/11/2025 4:32 PM - Electronically signed by Lia Cali D.O. PS T: Report ID: [id number] Reading Location: [place] [address] Kwame Iqbal MD IMG CT PROCEDURES Final Resul t from Last 3 Months Insurance [facility] Advance Directives For more information, please contact: [phone] * Full Code (Latest Code Status on File) Date Activated Date Inactivated Comments 02/09/2023 12:30 PM 02/09/2023 7:47 PM Care Teams Cage Unloader Relationship Specialty Start Date End Date Syed Matthews MD PCP - General Emergency Medicine 05/15/22
--- OUTSIDE RECORDS SUMMARY | 2025-06-15 12:08 | XMS_ITS | Clinical Summary ---
Author Organization [facility] Belinda Amado Address [address] [place] [address] Care Team Providers Care Employee Relations Advisor Name Role Phone Syed Matthews MD Primary Care Provider [phone] Allergies No known active allergies Medications albuterol sulfate HFA 90 mcg/actuation aerosol inhaler Take 2 Puffs by inhalation. 4 Active montelukast (SINGULAIR) 10 mg tablet Take 10 mg by mouth daily at bedtime. 5 Active mepolizumab (Nucala) 100 mg/mL Auto-Injector Inject 100 mg by subcutaneous injection. 5 Active PARoxetine HCl (PAXIL) 10 mg tablet Take 10 mg by mouth. Active rosuvastatin (CRESTOR) 40 mg tablet Take 40 mg by mouth daily. Active umeclidinium (Incruse Ellipta) 62.5 mcg/actuation Disk with Device Take 1 Puff by inhalation daily. 5 Active loratadine (CLARITIN) 10 mg tablet Take 10 mg by mouth daily. 5 Active budesonide-form oteroL (Breyna) 160-4.5 mcg/actuation HFA Aerosol Inhaler INHALE 2 PUFFS TWICE DAILY RINSE MOUTH AFTER USE 5 Active Active Problems Problem Noted Date Diagnosed Date Elevated platelet count 06/15/2025 Encounters Date Type Department Care Team Description 06/15/2025 11:30 AM CDT Office Visit [facility] Oncology and Hematology - [place] [address] [place] [address] Jessica Kumar MD Elevated platelet count (Primary Dx) from Last 3 Months Family History Medical History Relation Name Comments Breast Cancer Mother Relation Name Status Comments Father Mother Social History Tobacco Use Types Packs/Day [...] Mass Index 37.75 06/15/2025 11:21 AM CDT Plan of Treatment Upcoming Encounters Date Type Department Care Team (Late st Contact Info) Description 07/13/2025 4:30 PM CDT Telephone Check Up [facility] Oncology and Hematology - [place] [address] [facility] [address] [place] [address] Lucio Luis MD [address] [facility] [address] [place] [address] Health Maintenance Due Date Last Done Comments DTAP/TDAP/TD VACCINES (1 - Tdap) 1982 COLORECTAL SCREENING 2008 Colorectal Cancer Screening 2008 FIT-DNA Q 3 years 2008 FIT/FOBT Q 1 year 2008 Flex Sig/CT Colonography Q 5 years 2008 ZOSTER VACCINE (1 of 2) 2013 [place] Prev entative Visit/Annual Wellness Visit 10/08/2024 INFLUENZA VACCINE (#1) 2025 RSV VACCINE (60+ or ) (1 - 1-dose 75+ series) 2038 Insurance [employer] PPO [facility] Care Teams Employee Relations Advisor Relationship Specialty Start Date End Date Syed Matthews MD [address] [place] [phone] PCP - General Family Practice 03/18/25
[2025-06-15 13:10] LABS: Hematocrit 44.4 % (42.0-52.0); Hemoglobin 14.9 g/dL (14.0-18.0); Immature Granulocyte Percent A 0.5 % (0-0.5); Lymphocytes Absolute Auto 3.83 K/mm3 (0.9-3.2); Mean Corpuscular HGB Conc 33.6 g/dl (32-36); Mean Corpuscular Hemoglobin 29.9 pg (26-34); Mean Corpuscular Volume 89.0 fl (80-100); Nucleated Red Blood Cells Absolute Auto 0.000 K/mm3 (0.0-0.012); Nucleated Red Blood Cells Perc 0.0 % (0.0-0.2); Platelet Count Result 358 k/mm3 (150-375); Red Blood Count 4.99 M/mm3 (4.6-6.20); White Blood Count 14.4 K/mm3 (4.5-10.0)
[2025-06-15 13:42] LABS: Alanine Aminotransferase 30 U/L (6-50); Albumin Level 4.3 g/dL (3.5-5.1); Alkaline Phosphatase 72 U/L (38-126); Anion Gap 7 mmol/L (4-12); Aspartate Amino Transferase 29 U/L (17-59); Bilirubin,Total 0.4 mg/dL (0.2-1.3); Blood Urea Nitrogen 21 mg/dL (9-20); CRP < 0.5 mg/dL (<1.0); Calcium 9.2 mg/dL (8.4-10.2); Carbon Dioxide 28 mmol/L (22-30); Chloride 102 mmol/L (98-107); Estimated Glomerular Filt Rate > 60; Glucose 95 mg/dL (65-110); Potassium 4.0 mmol/L (3.4-5.0); Sodium 137 mmol/L (137-145); Total Protein 7.5 g/dL (6.3-8.2)
[2025-06-15 13:43] LABS: Iron 129 ug/dL (49-181)
[2025-06-15 13:52] LABS: Percent Iron Saturation 39 % (20-50)
[2025-06-15 14:24] LABS: Ferritin 94.00 ng/mL (11.1-264)
[2025-06-23 14:09] LABS: CALR + MPL + E12-E15 YES YES
== END 2025-06-15 12:01 | disposition home or self-care (01) ==
LOC: ANHLAB 12:02
PROVIDERS: PCP Emergency Medicine; Visit Provider Internal Medicine Hematology & Oncology
DX: R79.89 Other specified abnormal findings of blood chemistry (principal); D75.1 Secondary polycythemia
CPT/HCPCS: 36415; 80053; 81219; 81270; 81338; 82728; 83540; 83550; 85025; 85652; 86140

== ENCOUNTER 2025-06-21 14:14 | Emergency (ER) | payer MEDICARE, SELFPAY ==
--- NOTE | ~2025-06-21 | XR_ITS ---
EXAMINATION: XR chest 2V, 06/21/2025 14:53 CDT HISTORY: cough SOB COMPARISON: No comparisons available. Technique: 2 views obtained. Findings: The lungs are clear, no effusion. No pneumothorax. Heart is normal size. Mediastinal and hilar contours are within normal limits. Bony thorax no acute abnormality. Impression: No acute cardiopulmonary abnormality. Reviewed, dictated and finalized at location A. Impression: No acute cardiopulmonary abnormality.
[2025-06-21 14:14] VITALS: BP 164/74; PULSE 85; RESP 20; TEMP 36.8; O2SAT 94
--- NOTE | 2025-06-21 14:21 | ECG_ITS ---
Test Date: 2025-06-21 14:18:24 Measurements Intervals [place] Rate: 75 P: 63 RI: 139 QRS: 82 QRSD: 157 T: 39 QT: 398 QTc: 447 Interpretive Statements SINUS RHYTHM RIGHT BUNDLE BRANCH BLOCK [120+ ms QRS DURATION, UPRIGHT V1, 40+ ms S IN I/aVL/V4/V5/V6] ABNORMAL ECG No previous ECG available for comparison Electronically Signed On 06-22-2025 07:46:18 CDT by Del Jordan M.D.
[2025-06-21 14:22] VITALS: PULSE 80; O2SAT 96
[2025-06-21 14:29] LABS: Hematocrit 43.6 % (42.0-52.0); Hemoglobin 14.5 g/dL (14.0-18.0); Immature Granulocyte Percent A 0.5 % (0-0.5); Lymphocytes Absolute Auto 2.09 K/mm3 (0.9-3.2); Mean Corpuscular HGB Conc 33.3 g/dl (32-36); Mean Corpuscular Hemoglobin 29.9 pg (26-34); Mean Corpuscular Volume 89.9 fl (80-100); Nucleated Red Blood Cells Absolute Auto 0.000 K/mm3 (0.0-0.012); Nucleated Red Blood Cells Perc 0.0 % (0.0-0.2); Platelet Count Result 335 k/mm3 (150-375); Red Blood Count 4.85 M/mm3 (4.6-6.20); White Blood Count 15.6 K/mm3 (4.5-10.0)
[2025-06-21 14:43] LABS: Alanine Aminotransferase 26 U/L (6-50); Albumin Level 4.1 g/dL (3.5-5.1); Alkaline Phosphatase 73 U/L (38-126); Anion Gap 6 mmol/L (4-12); Aspartate Amino Transferase 28 U/L (17-59); Bilirubin,Total 0.4 mg/dL (0.2-1.3); Blood Urea Nitrogen 27 mg/dL (9-20); Calcium 8.7 mg/dL (8.4-10.2); Carbon Dioxide 25 mmol/L (22-30); Chloride 105 mmol/L (98-107); Estimated CRCL calculation 67 ml/min; Estimated Glomerular Filt Rate 60; Glucose 112 mg/dL (65-110); Potassium 3.8 mmol/L (3.4-5.0); Sodium 136 mmol/L (137-145); Total Protein 7.2 g/dL (6.3-8.2)
--- OUTSIDE RECORDS SUMMARY | 2025-06-21 14:50 | XMS_ITS | Encounter Summary ---
Author Organization [facility] [employer] [facility] Address [address] [place] [address] Care Team Providers Care Dump Attendant Name Role Phone Syed Matthews MD Primary Care Provider [phone] Encounter Details Date Type Department Care Team ([facility] Contact Info) Description 06/16/2025 Orders Only [facility] Oncology and Hematology - [place] [employer] [address] [place] [address] Lucio Luis MD [address] [place] [address] [employer] [address] [place] [phone] Social History Tobacco Use Types Packs/Day Years Used Date Smoking Tobacco: Former Cigarettes 1.5 40 0 06/15/1981 - 06/15/2021 Smokeless Tobacco: Never Alcohol Use Standard Drinks/Week Comments Not Currently 0 (1 standard drink = 0.6 oz pur e alcohol) 27 years no alcohol Sex and Gender Information Value Date Recorded Sex Assigned at Not on file Legal Sex Male 8:13 AM CDT Gender Identity Not on file Sexual Orientation Not on file documented as of this encounter Plan of Treatment Upcoming Encounters Date Type Department Care Team (Late st Contact Info) Description 07/13/2025 4:30 PM CDT Telephone Check Up [facility] Oncology and Hematology - [place] [employer] [address] [place] [address] [place] [address] [place] [address] [employer] [address] [place] [phone] documented as of this encounter Procedures Procedure Name Priority Date/Time Associated Diagnosis Comments COMPREHENSIVE METABOLIC PANEL Routine 06/15/2025 8:00 AM CDT documented in this encounter Results * COMPREHENSIVE METABOLIC PANEL (06/15/2025 8:00 AM CDT) Blood Lucio Luis MD CHEMISTRY ORDERABLES Final Resu lt documented in this encounter Visit Diagnoses Not on filedocumented in this encounter Care Teams Dump Attendant Relationship Specialty Start Date End Date Syed Matthews MD [address] [place] [phone] PCP - General Family Practice 03/18/25 documented as of this encounter
--- OUTSIDE RECORDS SUMMARY | 2025-06-21 14:50 | XMS_ITS | Clinical Summary ---
Author Organization [facility] Address [address] [place] [address] Care Team Providers Care Clerical Methods Analyst Name Role Phone Syed Matthews MD Primary Care Provider [phone] Allergies No known active allergies Medications PARoxetine [...] package directions 1 packet 06/12/20 25 Active doxycycline (VIBRAMYCIN) 100 mg capsule Take 1 tablet/capsule (100 mg total) by mouth 2 (two) times a day for 5 days 10 tablet/caps ule 06/18/20 25 2024 Active predniSONE (DELTASONE) 20 mg tablet Take 2 tablets (40 mg) by mouth daily for 5 days 10 tablet 06/18/20 25 2024 Active ergocalciferol (VITAMIN D) 50,000 unit capsule Take 1 capsule (50,000 Units total) by mouth once a week 04/27/20 22 2024 Discontinued(P atient Reported) fluticasone propionate (FLONASE) 50 mcg/actuation nasal spray USE 2 SPRAY(S) IN EACH NOSTRIL ONCE DAILY 05/23/202024 Discontinued(P atient Reported) hydrOXYzine (ATARAX) 25 mg [...] 11 06/13/20 24 2024 Discontinued(D uplicate order) Allergy Relief, loratadine, 10 mg tablet Take 1 tablet by mouth once daily 90 tablet 03/11/20 25 2024 Discontinued umeclidinium (Incruse Ellipta) 62.5 mcg/actuation blister with device Inhale 1 puff by mouth once daily 30 each 2 03/18/20 25 2024 Discontinued Breyna 160-4.5 mcg/actuation inhaler INHALE 2 PUFFS TWICE DAILY RINSE MOUTH AFTER USE 11 g 04/27/20 25 2024 Discontinued azithromycin (ZITHROMAX) 250 mg tabletIndicatio ns:Severe persistent asthma without complication (HCC) Take 2 tablets (500 mg total) by mouth daily for 1 day, THEN 1 tablet (250 mg total) daily for 4 days. 6 tablet 06/12/20 25 2024 Active Problems Patient Care Coordination No te [...] Encounters Date Type Department Care Team Description 06/18/2025 Telephone [facility] Pulmonology [address] [place] [address] [place] [phone] Kwame Iqbal MD 06/12/2025 11:30 AM CDT Office Visit [facility] Medical [facility] Pulmonology [address] [place] [address] [address] [place] [phone] Kwame Iqbal MD Severe persistent asthma without complication (HCC) (Primary Dx); Chronic obstructive pulmonary disease, unspecified COPD type (HCC); Cigarette nicotine dependence in remission; Non-seasonal allergic rhinitis due to other allergic trigger 06/12/2025 Telephone [facility] Pulmonology [address] [facility] [address] [place] [phone] Karen Mabry MA earlier appointment available. 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 Gender Identity Not on file Sexual Orientation [...] remission from Last 3 Months Results * Pulmonary Function Test - (06/10/2025 3:00 PM CDT) FVC POST 3.43 L 06/10/2025 3:10 PM CDT [facility] FEV1 POST 1.50 L 06/10/2025 3:10 PM CDT [facility] [id number] 43.72 % 06/10/2025 3:10 PM CDT [facility] FFE33-50% POST 0.42 L/s 06/10/2025 3:10 PM CDT [facility] PEF POST 3.98 L/s 06/10/2025 3:10 PM CDT [facility] DLCOc SB 18.23 ml/(min*mm Hg) 06/10/2025 3:10 PM CDT [facility] DLCO/VA PRE 4.44 ml/(min*mm Hg*L) 06/10/2025 3:10 PM CDT [facility] VA 4.10 L 06/10/2025 3:10 PM CDT [facility] TLC PRE 4.56 L 06/10/2025 3:10 PM CDT [facility] VC PRE 3.10 L 06/10/2025 3:10 PM CDT [facility] IC PRE 2.29 L 06/10/2025 3:10 PM CDT [facility] FRC PL PRE 2.33 L 06/10/2025 3:10 PM CDT [facility] ERV PRE 0.87 L 06/10/2025 3:10 PM CDT [facility] RV PRE 1.46 L 06/10/2025 3:10 PM CDT [facility] RAW PRE 16.81 cmH2O*s/L 06/10/2025 3:10 PM CDT [facility] VTG 3.48 L 06/10/2025 3:10 PM CDT [facility] FVC PRE 2.96 L 06/10/2025 3:10 PM CDT [facility] FEV1 PRE 1.22 L 06/10/2025 3:10 PM CDT [facility] [id number] 41.09 % 06/10/2025 3:10 PM CDT [facility] IJV26-88% PRE 0.38 L/s 06/10/2025 3:10 PM CDT [facility] PEF PRE 3.37 L/s 06/10/2025 3:10 PM CDT [facility] Anatomical Region Laterality Modality PFT 06/10/2025 1:59 PM CDT Impressions 06/16/2025 9:03 PM CDT 1. [id number] obstructive ventilatory limitation with concomitant moderate restriction 2. There is a significant positive bronchodilator response 3. Mild diffusion impairment 4. During a 6 minute walk test the patient ambulated 1130 ft on ambient air with lowest oxygen saturation of 90% Electronically signed by Kishor Steinberg MD Pulmonary & Critical Care Narrative 06/16/2025 9:03 PM CDT PULMONARY FUNCTION TESTS Efrain Vanessa 59 y.o. 06/16/2025 INTERPRETATION Please see technologist's comments mentioned in attached results report. SPIROMETRY: Pre bronchodilator FEV1 is 38 % predicted, FVC is 72 % predicted, FEV1/FVC is 0.41 Bronchodilator response: Yes Inspection of the patient's flow-volume loops shows: Scooping of the expiratory limb. Otherwise normal configuration of the inspiratory and expiratory limbs. LUNG VOLUMES: Lung volumes by body plethysmography: TLC is 70 % predicted, RV is 62 % predicted DLCO: Unadjusted for hemoglobin and carboxyhemoglobin DLCO is 69 % predicted Kwame Iqbal MD PFT ORDERABLES Final Result * CT Lung Cancer Screening (06/10/2025 2:53 [...] Lia Cali D.O. PS T: Report ID: [id number] Reading Location: [id number] Procedure Note Lia Cali, DO - 06/11/2025 [...] Lia Cali D.O. PS T: Report ID: [id number] Reading Location: [place] [address] [place] Kwame Iqbal MD IMG CT PROCEDURES Final Resul t from Last [address] [facility] Advance Directives For more information, please contact: [phone] * Full Code (Latest Code Status on File) Date Activated Date Inactivated Comments 02/09/2023 12:30 PM 02/09/2023 7:47 PM Care Teams Clerical Methods Analyst Relationship Specialty Start Date End Date Syed Matthews MD PCP - General Emergency Medicine 05/15/22
--- OUTSIDE RECORDS SUMMARY | 2025-06-21 14:50 | XMS_ITS ---
Author Organization [facility] Address [address] [place] [address] Care Team Providers Care Special Duty Nurse Name Role Phone Syed Matthews MD Primary Care Provider [phone] Active Problems Patient Care Coordination No te [...]
--- OUTSIDE RECORDS SUMMARY | 2025-06-21 14:50 | XMS_ITS | Clinical Summary ---
Author Organization [facility] Address [address] [facility] [address] [place] [address] Phone Care Team Providers Care Concrete Block Layer Name Role Phone Ansley Atkins MD Primary [...] Insurance [place] [id number] Care Teams Concrete Block Layer Relationship Specialty Start Date End Date Ansley Atkins MD PCP - General Family Medicine 06/02/21
--- OUTSIDE RECORDS SUMMARY | 2025-06-21 14:50 | XMS_ITS | Clinical Summary ---
Author Organization [facility]inda Amado Address [address] [place] [address] Care Team Providers Care Stereoptic Projection Topographer Name Role Phone Syed Matthews MD Primary Care Provider [phone] Allergies No known active allergies Medications albuterol [...] Encounters Date Type Department Care Team Description 06/16/2025 External Device Data [facility] ABSTRACTION Provider, Abstract 06/16/2025 External Device Data [facility] ABSTRACTION Provider, Abstract 06/16/2025 External Device Data [facility] ABSTRACTION Provider, Abstract 06/16/2025 Abstract [facility] Oncology and Hematology - [address] [place] [address] Lucio Luis MD 06/16/2025 Orders Only [facility] - [address] [place] [address] Lucio Luis MD 06/15/2025 11:30 AM CDT Office Visit [facility] - [address] [place] [address] Jessica Kumar MD Elevated platelet count (Primary [...] 07/13/2025 4:30 PM CDT Telephone Check Up [facility] - [address] [place] [phone] Lucio Luis MD [address] [facility] [address] [place] [address] Health Maintenance Due Date Last Done Comments Pre-Diabetes and Diabetes Screening 1963 DTAP/TDAP/TD VACCINES (1 - Tdap) 1982 COLORECTAL SCREENING 2008 Colorectal Cancer Screening 2008 FIT-DNA Q 3 years 2008 FIT/FOBT Q 1 year 2008 Flex Sig/CT Colonography Q 5 years 2008 ZOSTER VACCINE (1 of 2) 2013 RSV VACCINE (60+ or ) (1 - Risk 60-74 years 1-dose series) 2023 INFLUENZA VACCINE (#1) 2025 Lung Cancer Screening 06/10/2026 06/10/2025 , 06/06/2024, 02/16/2023, Additional history exists Procedures Procedure Name Priority Date/Time Associated Diagnosis Comments COMPREHENSIVE METABOLIC PANEL Routine 06/15/2025 8:00 AM CDT from Last 3 Months Results * COMPREHENSIVE METABOLIC PANEL (06/15/2025 8:00 AM CDT) Blood Lucio Luis MD CHEMISTRY ORDERABLES Final Resu lt from Last 3 Months Insurance [employer] PPO MCR Care Teams Stereoptic Projection Topographer Relationship Specialty Start Date End Date Syed Matthews MD [address] [place] [phone] PCP - General Family Practice 03/18/25
[2025-06-21] MEDS: IPRATROPIUM BR 0.02% INH SOLN 0.5 MG/2.5 ML VIAL 1.5 MG INHALATION (15:18)
[2025-06-21 15:20] VITALS: PULSE 74; RESP 14
[2025-06-21 15:27] LABS: INR 1.0; Prothrombin Time 12.9 Seconds (11.1-14.7)
[2025-06-21 15:28] LABS: Partial Thromboplastin Time 28.8 Seconds (22.3-36.8)
--- NOTE | 2025-06-21 15:33 | ED_ITS ---
HPI - SOB/Dyspnea General Chief Complaint: Shortness of Breath/Dyspnea Stated Complaint: SOB Time Seen by Provider: 06/21/25 14:24 Source: patient Mode of arrival: EMS Limitations: no limitations History of Present Illness HPI Narrative: Patient is a 59-year-old male, past medical history of COPD/emphysema, who presents the ED via EMS with report of shortness of breath. Patient reports he began feeling ill last week with sore throat, cough, congestion. Was placed on azithromycin by his primary care doctor. Took this without improvement. Contacted his hand chain maker and was started on 20 mg of prednisone daily. States he is on his 3rd day of this, but has persistent shortness breath, worse with exertion. Has been using his inhalers at home without improvement. Also reports intermittent palpitations, tingling of left arm. Denies significant chest pain. Denies fevers. Denies swelling in legs. Related Data Allergies Allergy/AdvReac Type Severity Reaction Status Date / Time No Known Allergies Allergy Verified 06/21/25 14:24 Review of Systems 2 Review of Systems: All systems reviewed & are unremarkable except as noted in HPI. All systems reviewed & are unremarkable except as noted in HPI and below PMFSH Past Medical History Medical History COPD (chronic obstructive pulmonary disease) Environmental allergies Anxiety Surgical History Surgical History History of melanoma excision 08/2021 - left scapula H/O removal of cyst (~2020) 07/2021 - left supraclavicular area Family History Family History Mother Breast cancer Social History Social History Smoking packs per day: 2 Smoking cigarettes per day: 40.0 Years smoked: 40 Smoking pack-years: 80.00 Smoking status: Former smoker Tobacco type: cigarettes Second hand tobacco smoke exposure: No Smoking end date: 07/08/21 Alcohol intake: never Substance use: never Substance use type: marijuana Last use: 07/08/2021 Living arrangements: with family Occupation/Education: occupation Gender identity (if verbalized by the patient): Male Sexual Orientation (if Verbalized by the Patient): Straight or Heterosexual Spiritual care concerns: No Exam 2 Narrative: GENERAL: Appears older than stated age, obese with BMI of 38.0, non-toxic, in no acute distress. HEAD: Normocephalic, atraumatic. RESPIRATORY: Airway patent, respirations mildly tachypneic with slight exertional dyspnea. Diffuse expiratory wheezing and rhonchi heard in bases bilaterally. CARDIOVASCULAR: Regular rate and rhythm without murmurs, rubs, or gallops. ABDOMINAL: Soft, nontender, nondistended. Normoactive BS. MUSCULOSKELETAL: Moves all extremities. No gross deformities. No peripheral edema. SKIN: Warm, dry, normal color. NEURO: A&O X3. Speech clear. Cranial nerves II-XII grossly intact. Steady gait. No ataxic movements. PSYCHIATRIC: Appropriate mood and affect. Normal interaction. Course Vital Signs Vital signs: Vital Signs Temperature 98.2 F 06/21/25 14:14 Pulse Rate 85 06/21/25 14:14 Respiratory Rate 20 06/21/25 14:14 Blood Pressure 164/74 H 06/21/25 14:14 Pulse Oximetry 94 06/21/25 14:14 Oxygen Delivery Room Air 06/21/25 14:14 Temperature 98.2 F 06/21/25 14:14 Pulse Rate 86 06/21/25 18:16 Respiratory Rate 18 06/21/25 18:16 Blood Pressure 145/80 H 06/21/25 18:16 Pulse Oximetry 94 06/21/25 18:16 Oxygen Delivery Room Air 06/21/25 14:22 MDM - SOB/Dyspnea MDM Narrative Medical decision making narrative: Patient presented to ED with increased shortness breath, recent URI symptoms. Has been on azithromycin and few day history of prednisone without improvement. History of COPD. Vital signs are stable upon arrival. Patient is afebrile. Oxygen ranging around 94% on room air. He is not requiring supplemental oxygen at this time. He does follow with pulmonology and states this SaO2 is normal for him. CBC with white blood cell count of 15.6. He has been on steroids recently. Denies fevers. CMP unremarkable. EKG with sinus rhythm, right bundle, no concerning ST changes. Troponin WNL. BNP WNL. Dimer WNL. CXR clear. Viral swabs negative. Patient given hour long nebulizer treatment and Solu-Medrol. On re-evaluation, he is feeling much improved. States breathing is improved. He was ambulated throughout the ED and Sao2 mostly ranged from 90-94, did briefly drop down to 89% while ambulating but this corrected itself quickly. Patient states this is also normal for him. He recently had his 6 minute walk test with pulmonology and this was consistent with his findings then. They discussed potentially arranging home oxygen, but have not gotten to this step yet. Discussed lab and imaging findings, overall workup, utilize shared decision-making regarding discharge home versus admission. Patient would prefer to go home. He does not wish to be admitted at this time. Will discharge patient on prednisone 50 mg daily, as well as antibiotics. Patient advised to continue nebulizers and inhalers at home, have close follow-up with PCP/pulmonology, discussed very strict return precautions. He voiced understanding and again feels comfortable going home. Discharged in stable condition. Vital signs stable at D/C. Medical Records Attestation: I reviewed the patient's medical records. Lab Data Attestation: I reviewed the patient's lab results. 06/21/25 14:25 06/21/25 14:25 Labs: Lab Results 06/21/25 06/21/25 06/21/25 Range/Units 14:24 14:25 15:31 WBC 15.6 H (4.5-10.0) K/mm3 RBC 4.85 (4.6-6.20) M/mm3 Hgb 14.5 (14.0-18.0) g/dL Hct 43.6 (42.0-52.0) % MCV 89.9 (80-100) fl MCH 29.9 (26-34) pg MCHC 33.3 (32-36) g/dl RDW 12.8 (11.5-14.5) % Plt Count 335 (150-375) k/mm3 MPV 8.8 (7.4-10.4) fl Immature Gran % (Auto) 0.5 (0-0.5) % Neut % (Auto) 77.6 H (45.5-73.1) % Lymph % (Auto) 13.4 L (18.3-44.2) % [place] % (Auto) 8.2 (2.6-8.5) % Eos % (Auto) 0.0 (0-4.4) % Baso % (Auto) 0.3 (0.2-1.2) % Lymph # (Auto) 2.09 (0.9-3.2) K/mm3 [place] # (Auto) 1.3 H (0.1-0.6) K/mm3 Eos # (Auto) 0.0 (0-0.3) K/mm3 Baso # (Auto) 0.1 (0.0-0.1) K/mm3 Abs Immat Gran (auto) 0.08 H (0.00-0.031) K/mm3 Absolute Neuts (auto) 12.1 H (1.3-6.7) K/mm3 Absolute Nucleated RBC 0.000 (0.0-0.012) K/mm3 Nucleated RBC % 0.0 (0.0-0.2) % PT 12.9 (11.1-14.7) Seconds INR 1.0 APTT 28.8 (22.3-36.8) Seconds D-Dimer < 0.27 (<0.48) ug/mL Sodium 136 L (137-145) mmol/L Potassium 3.8 (3.4-5.0) mmol/L Chloride 105 (98-107) mmol/L Carbon Dioxide 25 (22-30) mmol/L Anion Gap 6 (4-12) mmol/L BUN 27 H (9-20) mg/dL Creatinine 1.22 (0.7-1.3) mg/dL Estim Creat Clear Calc 67 ml/min Estimated GFR 60 (59 - ) Glucose 112 H (65-110) mg/dL Calcium 8.7 (8.4-10.2) mg/dL Total Bilirubin 0.4 (0.2-1.3) mg/dL AST 28 (17-59) U/L ALT 26 (6-50) U/L Alkaline Phosphatase 73 (38-126) U/L Troponin I < 0.012 (0.000-0.034) ng/mL NT-Pro-B Natriuret Pep 85 (19.9-100) pg/mL Total Protein 7.2 (6.3-8.2) g/dL Albumin 4.1 (3.5-5.1) g/dL Influenza A (RT-PCR) Negative (Negative) Influenza B (RT-PCR) Negative (Negative) RSV (RT-PCR) Negative (Negative) SARS-CoV-2 RNA (RT-PCR) Negative (Negative) Imaging Data Attestation: I personally reviewed and interpreted this imaging study as follows: Radiologist's impression: ITS Impressions Chest X-Ray 06/21/25 15:01 Impression: No acute cardiopulmonary abnormality. ECG Data EKG #1: Attestation: I personally reviewed and interpreted this ECG as follows: ECG completion date: 06/21/25 ECG completion time: 14:18 EKG Interpretation: normal rate (75), sinus rhythm, no ST changes and RBBB Discharge Plan Discharge Clinical Impression: Acute exacerbation of chronic obstructive pulmonary disease (COPD) Patient Disposition: Home Condition: Stable Instructions: Antibiotic Form, Upper Respiratory Infection (ED), COPD (Chronic Obstructive Pulmonary Disease) (ED), Dyspnea (ED) Additional Instructions: Take increased dose of steroids as prescribed over the next several days. Take antibiotics as prescribed. Continue your inhalers and nebulizers at home. Follow-up closely with your primary care doctor and/or hand chain maker for further evaluation. Return to the ED if you experience worsening or severe difficulty breathing, chest pain, coughing blood, persistent fevers, unable to keep down food or drink, pain or swelling in your legs, or any other symptoms of concern. Patient Language: Hungarian Prescriptions: New amoxicillin-pot clavulanate 875-125 mg tablet 1 tablet PO Q12H 7 Days Qty: 14 0RF doxycycline monohydrate 100 mg tablet 100 mg PO BID 5 Days Qty: 10 0RF prednisone 50 mg tablet 50 mg PO DAILY Qty: 5 0RF No Action prednisone 50 mg tablet 50 mg PO DAILY Qty: 7 0RF prednisone 20 mg tablet 20 mg PO DAILY Qty: 10 0RF albuterol sulfate 2.5 mg /3 mL (0.083 %) solution for nebulization 2.5 mg inhalation Q4-6H PRN (Reason: shortness of breath or wheezing) Qty: 180 2RF prednisone 10 mg tablet 40 mg PO DAILY 5 Days Qty: 20 2RF Daliresp 500 mcg tablet 500 mcg PO DAILY Qty: 30 2RF fluticasone propionate [Flonase Allergy Relief] 50 mcg/actuation spray,suspension 1 spray intranasal Q12H Qty: 16 1RF Rx Instructions: administer into each nostril loratadine [Claritin] 10 mg tablet 10 mg PO DAILY Qty: 90 2RF Spiriva with HandiHaler 18 mcg capsule, w/inhalation device 1 cap inhalation DAILY Qty: 90 1RF ipratropium bromide 0.02 % solution See Rx Instructions .ROUTE .COMPLEX Qty: 300 0RF Dose Instruction: INHALE 1 VIAL IN NEBULIZER EVERY 6 HOURS FOR REST Rx Instructions: INHALE 1 VIAL IN NEBULIZER EVERY 6 HOURS NEEDED. hydroxyzine HCl 25 mg tablet 25 mg PO BID PRN (Reason: anxiety) Qty: 60 1RF budesonide-formoterol [Symbicort] 160-4.5 mcg/actuation HFA aerosol inhaler See Rx Instructions .ROUTE .COMPLEX Qty: 22 0RF Dose Instruction: INHALE 2 PUFFS BY MOUTH EVERY 12 HOURS Rx Instructions: INHALE 2 PUFFS BY MOUTH EVERY 12 HOURS albuterol sulfate 90 mcg/actuation HFA aerosol inhaler 2 puff INHALATION Q4-6H PRN (Reason: Wheezing) Qty: 8.5 1RF Follow-up/Referrals: Syed Matthews MD [Primary Care Provider, Family Practice] Time of Disposition: 17:56
[2025-06-21 15:51] LABS: NT Pro B Type Natriuretic Pept 85 pg/mL (19.9-100); Troponin I < 0.012 ng/mL (0.000-0.034)
[2025-06-21 16:13] LABS: Influenza A QL RT-PCR Negative (Negative); Influenza B QL RT-PCR Negative (Negative); RSV RNA, RT-PCR Negative (Negative); SARS-CoV-2 RNA PCR Negative (Negative)
[2025-06-21 16:42] VITALS: BP 153/82; PULSE 82; RESP 20; O2SAT 97
[2025-06-21 17:34] VITALS: BP 128/82; PULSE 77; RESP 18; O2SAT 93
[2025-06-21 18:16] VITALS: BP 145/80; PULSE 86; RESP 18; O2SAT 94
== END 2025-06-21 18:18 | disposition home or self-care (01) ==
PROVIDERS: Emergency Medicine; Emergency Provider Physician Assistant; PCP Emergency Medicine
DX: J44.1 Chronic obstructive pulmonary disease with (acute) exacerbation (principal); R94.31 Abnormal electrocardiogram [ECG] [EKG]; F41.9 Anxiety disorder, unspecified
CPT/HCPCS: 36415; 71046; 80053; 83880; 84484; 85025; 85380; 85610; 85730; 87637; 93005; 94640; 96374; 99284; J2919